=== PATIENT | male | born 1960 | race Caucasian/White ===

== ENCOUNTER 2017-01-11 14:18 | Emergency (ER) | payer OTHER ==
[~2017-01-11] VITALS: Ht 182.9 cm; Wt 92.0 kg
[~2017-01-11 14:18] MED LIST: BACT2OIN TOP; BETA.05%T TOP; CYCL1TAB29 PO; LISI-519 PO; NORC5TAB PO; THIA100T PO
[2017-01-11] MEDS ORDERED: SODIUM CHLOR 0.9% 1000 ML INJ 1,000 ML IV ONE (14:37)
[2017-01-11 14:40] VITALS: BP 179/107; PULSE 90; RESP 20; TEMP 99.3; O2SAT 97
[2017-01-11] MEDS ORDERED: SODIUM CHLORIDE 0.9% FLUSH 5 ML FLUSH IVF PRN (14:45)
[2017-01-11] MEDS ORDERED: LORazepam 2 MG/ML VIAL IVS ONE (14:45)
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
[2017-01-11 15:23] LABS: AUTOMATED NEUTROPHIL # 3.1 TH/MM3 (1.8-7.7); BASOPHIL % 0.6 % (0.0-2.0); EOSINOPHIL # 0.1 TH/MM3 (0-0.4); EOSINOPHIL % 1.5 % (0.0-4.0); HEMATOCRIT 38.8 % (39.0-51.0); HEMO FLAGS DIFF FINAL; LYMPH % 26.6 % (9.0-44.0); LYMPHOCYTE # 1.4 TH/MM3 (1.0-4.8); MEAN CELL VOLUME 91.9 FL (80.0-100.0); MEAN CORPUSCULAR HEMOGLOBIN 31.5 PG (27.0-34.0); MEAN CORPUSCULAR HGB CONC 34.2 % (32.0-36.0); MONO % 12.1 % (0.0-8.0); NEUT % 59.2 % (16.0-70.0); PLATELET COUNT 126 TH/MM3 (150-450); RED BLOOD COUNT 4.22 MIL/MM3 (4.50-5.90); RED CELL DISTRIBUTION WIDTH 17.3 % (11.6-17.2); WHITE BLOOD COUNT 5.2 TH/MM3 (4.0-11.0)
[2017-01-11 15:52] LABS: BICARBONATE 24.7 MEQ/L (21.0-32.0); POTASSIUM 3.7 MEQ/L (3.5-5.1)
[2017-01-11] MEDS ORDERED: LORA-392 PO (16:12)
[2017-01-11 17:54] LABS: BLOOD, URINE NEG (NEG); GLUCOSE,URINE NEG (NEG); KETONE, URINE NEG (NEG); NITRITE,URINE NEG (NEG); URINE COLOR YELLOW (YELLW/STRAW)
[2017-01-11 17:58] LABS: AMPHETAMINE, URINE NEG (NEG); BARBITURATES, URINE NEG (NEG); COCAINE, URINE NEG (NEG)
[2017-01-11 18:03] VITALS: BP 162/101; PULSE 92; RESP 20; O2SAT 98
== END 2017-01-11 18:47 | disposition home or self-care (01) ==
LOC: NEPE 14:18
DX: F10.230 Alcohol dependence with withdrawal, uncomplicated (principal); F10.10 Alcohol abuse, uncomplicated; R56.9 Unspecified convulsions; I10 Essential (primary) hypertension; F17.200 Nicotine dependence, unspecified, uncomplicated; Z87.39 Personal history of other diseases of the musculoskeletal system and connective tissue; Z87.09 Personal history of other diseases of the respiratory system; Z86.718 Personal history of other venous thrombosis and embolism; Z87.19 Personal history of other diseases of the digestive system; Z86.69 Personal history of other diseases of the nervous system and sense organs; Z87.2 Personal history of diseases of the skin and subcutaneous tissue
CPT/HCPCS: 80048; 80307; 80320; 81001; 85025; 96361; 96374; 99285; J2060; J7030

== ENCOUNTER 2017-03-24 09:31 | Inpatient (IN) | payer SELFPAY ==
[~2017-03-24] VITALS: Ht 182.9 cm; Wt 82.0 kg
[~2017-03-24 09:31] MED LIST changes: -BACT2OIN TOP; -BETA.05%T TOP; -CYCL1TAB29 PO; -LISI-519 PO; +LORA-392 PO; -NORC5TAB PO; -THIA100T PO
[2017-03-24 09:33] VITALS: BP 169/108; PULSE 124; RESP 20; TEMP 98.1; O2SAT 99
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
[2017-03-24] MEDS ORDERED: NO HOME MEDS (10:03)
[2017-03-24 10:19] LABS: AUTOMATED NEUTROPHIL # 5.3 TH/MM3 (1.8-7.7); BASOPHIL % 0.5 % (0.0-2.0); EOSINOPHIL % 0.6 % (0.0-4.0); HEMATOCRIT 42.4 % (39.0-51.0); HEMO FLAGS DIFF FINAL; LYMPHOCYTE # 1.4 TH/MM3 (1.0-4.8); MEAN CELL VOLUME 98.4 FL (80.0-100.0); MEAN CORPUSCULAR HEMOGLOBIN 32.2 PG (27.0-34.0); MEAN CORPUSCULAR HGB CONC 32.8 % (32.0-36.0); MONO % 10.1 % (0.0-8.0); NEUT % 69.8 % (16.0-70.0); PLATELET COUNT 154 TH/MM3 (150-450); WHITE BLOOD COUNT 7.6 TH/MM3 (4.0-11.0)
[2017-03-24 10:48] LABS: ALT (GPT) 51 U/L (12-78); ANION GAP 11 MEQ/L (5-15); AST (GOT) 50 U/L (15-37); BICARBONATE 23.1 MEQ/L (21.0-32.0); BLOOD UREA NITROGEN 6 MG/DL (7-18); CHLORIDE 104 MEQ/L (98-107); GLOMERULAR FILTRATION RATE 116 ML/MIN (>89); POTASSIUM 4.1 MEQ/L (3.5-5.1); SODIUM (NA) 138 MEQ/L (136-145)
[2017-03-24 10:50] LABS: ALKALINE PHOSPHATASE 78 U/L (45-117); TOTAL BILIRUBIN ADULT 0.5 MG/DL (0.2-1.0)
[2017-03-24] MEDS ORDERED: PIPERACIL-TAZO 4.5 GM PREMIX 100 ML IV ONE (11:15)
--- NOTE | 2017-03-24 11:17 | RADRPT ---
EXAM DATE/TIME: 03/24/2017 11:01 [facility] COMPARISON: No previous studies available for comparison. INDICATIONS : Open wound 5th toe, with pus drainage. MEDICAL HISTORY : None. SURGICAL HISTORY : None. ENCOUNTER: Initial ACUITY: 2 weeks PAIN SCORE: 10/10 LOCATION: Right foot. FINDINGS: Three view examination of the right foot demonstrates deformity of the fifth digit with fracture thro ugh the proximal phalanx. The remaining toe is dislocated laterally with overlap of fragments. There is subcutaneous emphysema and soft tissue swelling. CONCLUSION: 1. Fracture of the proximal phalanx of the fifth toe with dislocation of the distal toe laterally wit h overlap of fragments. 2. Subcutaneous emphysema and soft tissue swelling. Armando Licea MD on March 24, 2017 at 11:12 Board Certified Radiologist. This report was verified electronically.
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
[2017-03-24] MEDS ORDERED: RESP: ALBUTEROL 2.5 MG/IPRATROPIUM 0.5 MG NEB (PRN) NEB (11:45)
[2017-03-24] MEDS ORDERED: FLUMAZENIL 0.5 MG/5 ML VIAL IV PUSH PRN (11:45)
[2017-03-24] MEDS ORDERED: RESP: ALBUTEROL 2.5 MG/3 ML NEB (PRN) NEB (11:45)
[2017-03-24] MEDS ORDERED: SODIUM CHLORIDE 0.9% FLUSH 10 ML FLUSH IV FLUSH PRN ×2 (11:45)
[2017-03-24] MEDS ORDERED: HALOPERIDOL LACTATE 5 MG/ML AMP IM PRN (11:45)
[2017-03-24] MEDS ORDERED: DEXTROSE 50% IN WATER 50 ML VIAL(D50) IV PUSH PRN (11:45)
[2017-03-24] MEDS ORDERED: NALOXONE HCL 0.4 MG/ML AMP IV PRN (11:45)
[2017-03-24] MEDS ORDERED: MAGNESIUM HYDROXIDE SUSP 30 ML CUP PO PRN (11:45)
[2017-03-24] MEDS ORDERED: LORazepam 2 MG/ML VIAL IV PUSH PRN ×4 (11:45)
[2017-03-24] MEDS ORDERED: ONDANSETRON HCL 4 MG/2 ML VIAL IVP PRN (11:45)
[2017-03-24] MEDS ORDERED: DOCUSATE SODIUM 50 MG/SENNA 8.6 MG TAB PO PRN (11:45)
[2017-03-24] MEDS ORDERED: GLUCAGON 1 MG/ML VIAL OTHER PRN (11:45)
[2017-03-24] MEDS ORDERED: PROPOFOL 200 MG/20 ML AMP IV ONE (12:00)
[2017-03-24] MEDS ORDERED: ONDANSETRON HCL 4 MG/2 ML VIAL IV PUSH ONE (12:00)
[2017-03-24 12:08] VITALS: O2SAT 96
[2017-03-24] MEDS ORDERED: PIPERACIL-TAZO 4.5 GM PREMIX 100 ML IV SCH (12:15)
[2017-03-24] MEDS ORDERED: ACETAMINOPHEN 325 MG TAB PO PRN (12:15)
[2017-03-24 12:31] VITALS: BP 168/98; PULSE 88; RESP 18; O2SAT 98
[2017-03-24] MEDS ORDERED: chlordiazePOXIDE 25 MG CAP PO SCH (13:15)
[2017-03-24] MEDS: ACETAMINOPHEN/HYDROcodone 325 MG/10 MG TAB PO PRN ×2 (14:15→21:10)
--- NOTE | 2017-03-24 15:29 | MB ---
cc: AUDREY NDIAYE DPM DATE OF CONSULTATION: 03/24/2017 CHIEF COMPLAINT Right fifth digit ulcer infection. HISTORY OF PRESENT ILLNESS A 56-year-old homeless male who admitted wearing a pair of shoes that were too tight. He occasionally felt pain. He noticed some bleeding but the patient has significant neuropathy. He drinks 14-18 beers a day. Currently I am seeing the patient bedside. He is aware that there is odor, there is infection, and the need for surgical intervention. PAST MEDICAL HISTORY 1. Alcohol abuse. 2. Hypertension. 3. Left leg fracture. 4. Hand surgery. MEDICATIONS Reported medications: Lorazepam. ALLERGIES BEE STINGS FAMILY HISTORY Father of diabetes. Mother from cancer. SOCIAL HISTORY He is homeless in [place]. He lives in a tent at a dina's house. He smokes a pack a day. He drinks 12-18 beers a day unless he is out of money. Denies drug use. INPATIENT MEDICATIONS He is receiving Zosyn. Please see complete med list in chart. PHYSICAL EXAMINATION VITAL SIGNS: Temperature 98.1, pulse rate 88, respiratory rate 18, blood pressure 168/98. He is satting 98% on room air. GENERAL: This is an alert and oriented gentleman seen bedside. He is verbal and appropriate. He appears to be non-hallucinating. LOWER EXTREMITIES: The bilateral lower extremities are examined. On the right lower extremity there is noted to be a necrotic partially absent right fifth digit with swelling, erythema and edema to the dorsum of the foot. There is an odor. Pulses are palpable. Sensation is significantly decreased to light touch. There appears to be no ulceration of the left lower extremity. LABORATORY FINDINGS White blood cell count 7.6, hemoglobin/hematocrit 13/42, platelet count 154. ESR is 30. Chem-7: Sodium 138, potassium 4.1, chloride 104, CO2 23.1, BUN 6, creatinine 0.70, random glucose 137. IMAGING FINDINGS X-rays interpreted as soft tissue emphysema with fracture-dislocation involving the fifth digit. ASSESSMENT AND PLAN Right 5th digit fracture dislocation gangrene OR today for debridement of necrotic tissue and to explore possible gas within the tissue. The patient was educated on the need for surgery. Possible risks included prolonged healing and need for multiple debridements. Will of course take a deep culture and monitor the patient's bleeding status at the time of surgery. He should at least continue IV antibiotics for the next 3-5 days. Will advise pending surgery. JENNA Oh /2:48 PM /3:09 PM ELLEN
[2017-03-24 16:00] VITALS: BP 155/98; PULSE 76; RESP 16; TEMP 97.8; O2SAT 97
[2017-03-24] MEDS: INSULIN ASPART SUPPLEMENTAL SCALE SQ SCH ×2 (16:00→21:00)
[2017-03-24] MEDS ORDERED: MIDAZOLAM HCL 2 MG/2 ML VIAL ONE ×2 (17:08→18:45)
[2017-03-24] MEDS ORDERED: DEXAMETHASONE SOD PHOS 4 MG/ML VIAL ONE (17:08)
[2017-03-24] MEDS ORDERED: FAMOTIDINE 20 MG/2 ML VIAL ONE (17:08)
[2017-03-24] MEDS ORDERED: NEOMYCIN/POLYMYXIN 1 ML G.U. IRRIGANT TOPICAL ONE (17:35)
[2017-03-24] MEDS ORDERED: BUPIVACAINE HCL PF 0.5% 30 ML VIAL INFIL ONE (17:36)
[2017-03-24] MEDS ORDERED: SUGAMMADEX SODIUM 200 MG/2 ML VIAL IV PUSH ONE ×2 (18:02)
--- NOTE | 2017-03-24 18:27 | HHI.PR ---
Immediate Post Op Note Procedure Date: March 24, 2017 Pre Op Diagnosis: Right 5th digit gangrene OM 5th met Post Op Diagnosis: same Surgeon: Emmett Mayberry Shactor Helper(s): Scrub Procedure: Right the digit amputation, partial 5th metatarsal resection Findings: severe putrid odor of digit, 5th metatarsal head with clinical OM Complications: none Specimen(s) removed: rt 5th digit and bone for path and micro. Estimated blood loss: 30mL Anesthesia: General, Local Drains: Other Fluids: see anethesia report IVF Tourniquet time (min at mmHg) esmark ankle 10min Patient to: Other Patient Condition: Fair Implant/Devices: SEE IMPLANT LOG (if applicable) Date/Time of Procedure: SEE SURGICAL CARE RECORD Emmett Mayberry DPM March 24, 2017 18:26
[2017-03-24] MEDS ORDERED: *RESP: ALBUTEROL 2.5 MG/3 ML NEB (PRN) PERIprocedural Use ONLY NEB ONE (18:31)
[2017-03-24] MEDS ORDERED: fentaNYL CITRATE 250 MCG/5 ML AMP ONE (18:45)
[2017-03-24] MEDS ORDERED: *LABETALOL HCL 100 MG/20 ML VIAL PERIprocedural Use ONLY ONE ×2 (19:04→19:13)
[2017-03-24] MEDS ORDERED: *morphine SULFATE 8 MG/ML PERIprocedure ONLY ONE ×2 (19:06→19:20)
[2017-03-24] MEDS: SODIUM CHLOR 0.45% 1000 ML INJ 1,000 ML IV SCH (19:20)
[2017-03-24] MEDS: PIPERACIL-TAZO 4.5 GM PREMIX 100 ML IV SCH (19:40)
[2017-03-24 20:00] VITALS: BP 149/93; PULSE 73; RESP 20; TEMP 96.3; O2SAT 95
[2017-03-24 20:30] VITALS: O2SAT 93
[2017-03-24] MEDS ORDERED: SODIUM CHLORIDE 0.9% FLUSH 10 ML FLUSH IV FLUSH SCH (21:00)
[2017-03-24] MEDS: cloNIDine HCL 0.1 MG TAB PO PRN (21:09)
[2017-03-24] MEDS: LORazepam 2 MG TAB PO PRN (21:09)
[2017-03-24] MEDS: SODIUM CHLORIDE 0.9% FLUSH 10 ML FLUSH IV FLUSH SCH (21:10)
[2017-03-25] VITALS (7 sets, daily range): BP systolic 125–162; BP diastolic 75–100; PULSE 61–75; RESP 14–20; TEMP 96.1–97.4; O2SAT 95–99
[2017-03-25] MEDS: PIPERACIL-TAZO 4.5 GM PREMIX 100 ML IV SCH ×3 (00:16→16:11)
[2017-03-25] MEDS: SODIUM CHLOR 0.45% 1000 ML INJ 1,000 ML IV SCH ×2 (00:16→16:12)
[2017-03-25] MEDS: ACETAMINOPHEN/HYDROcodone 325 MG/10 MG TAB PO PRN ×2 (04:26→23:19)
[2017-03-25] MEDS: LORazepam 2 MG TAB PO PRN ×5 (04:26→18:10)
[2017-03-25] MEDS: INSULIN ASPART SUPPLEMENTAL SCALE SQ SCH ×4 (06:33→21:00)
[2017-03-25 06:57] LABS: AUTOMATED NEUTROPHIL # 5.7 TH/MM3 (1.8-7.7); BASOPHIL % 0.4 % (0.0-2.0); EOSINOPHIL % 0.2 % (0.0-4.0); HEMATOCRIT 39.3 % (39.0-51.0); HEMO FLAGS DIFF FINAL; LYMPHOCYTE # 0.8 TH/MM3 (1.0-4.8); MEAN CELL VOLUME 99.8 FL (80.0-100.0); MEAN CORPUSCULAR HEMOGLOBIN 32.1 PG (27.0-34.0); MEAN CORPUSCULAR HGB CONC 32.2 % (32.0-36.0); MONO % 11.3 % (0.0-8.0); NEUT % 77.1 % (16.0-70.0); PLATELET COUNT 128 TH/MM3 (150-450); RED BLOOD COUNT 3.94 MIL/MM3 (4.50-5.90); RED CELL DISTRIBUTION WIDTH 16.2 % (11.6-17.2); WHITE BLOOD COUNT 7.4 TH/MM3 (4.0-11.0)
[2017-03-25 07:27] LABS: BICARBONATE 27.1 MEQ/L (21.0-32.0); POTASSIUM 4.1 MEQ/L (3.5-5.1)
[2017-03-25] MEDS: MULTIVITAMINS/MINERALS THERAPEUTIC TAB PO SCH (08:05)
[2017-03-25] MEDS: SODIUM CHLORIDE 0.9% FLUSH 10 ML FLUSH IV FLUSH SCH ×2 (08:05→21:00)
[2017-03-25] MEDS: THIAMINE HCL 100 MG TAB PO SCH (08:05)
[2017-03-25] MEDS: FOLIC ACID 1 MG TAB PO SCH (08:05)
[2017-03-25] MEDS ORDERED: PNEUMOCOCCAL POLYVALENT INJ 25 MCG/0.5 ML SYR IM ONE (10:00)
[2017-03-25] MEDS ORDERED: INFLUENZA VIRUS VACCINE (QUADRIVALENT) 0.5 ML SYR IM ONE (10:00)
[2017-03-25] MEDS: ACETAMINOPHEN/HYDROcodone 325 MG/5 MG TAB PO PRN ×2 (11:29→18:10)
[2017-03-25] MEDS: BACITRACIN TOP OINT 15 GM TUBE TOPICAL SCH ×3 (11:29→21:01)
[2017-03-25] MEDS: chlordiazePOXIDE 25 MG CAP PO PRN (11:59)
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
--- NOTE | 2017-03-25 22:59 | MP ---
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 PROCEDURE Right fifth digit amputation with partial resection of fifth metatarsal. FINDINGS Severe putrid odor of digit with ischemia at the level of the fifth metatarsal, was soft, spongy, clinical signs OM. COMPLICATIONS None SPECIMEN Right fifth digit and bone for pathological analysis and micro ESTIMATED BLOOD LOSS Less than 30 mL ANESTHESIA General with local DRAINS 1/" Iodoform packing FLUIDS Please see anesthesia report. TOURNIQUET Esmarch about the ankle for 10 minutes INJECTABLES 10 mL of 0.25% Marcaine plain. CONDITION OF PATIENT Fair JUSTIFICATION FOR PROCEDURE A 56-year-old male who is admitted to the hospital for a putrid odor. X-ray showed dislocation of the digit. Clinically, the patient has a gangrene event. The patient is educated on the need for surgery, possible multiple debridements and IV antibiotics indicated. PROCEDURE IN DETAIL Under mild sedation, the patient was brought into the operating room, placed on the operative table in the supine position. Following the induction of general anesthesia, local anesthesia was obtained utilizing an ankle block. The patient's right foot was then scrubbed, prepped and draped in usual aseptic fashion. The foot was elevated, exsanguinated and the Esmarch remained around the ankle serving as a tourniquet. There is noted to be a floppy putrid digit which was sharply disarticulated at the level of the fifth MPJ. Next, a linear incision took place over the dorsal aspect of the fifth metatarsal. Sharp and blunt dissection was carried down to the periosteal surface of the fifth metatarsal utilizing power instrumentation. It was then resected. A bone biopsy was taken at the margin of the proximal cut of the fifth metatarsal and this was sent for microbial analysis and pathological analysis. The wound was then flushed with copious amounts of normal saline. The tourniquet was then relieved. There was noted to be pretty good bleeding at the surgery site. Bovie and ligation of vessels took place. Two retention sutures were then placed. A bulky bandage placed around the patient's right foot. The patient was then transferred from OR to PACU with all vital signs stable. The patient may need repeat debridement depending on how the foot looks within the next [id number] days. He should at least continue IV antibiotics. JENNA Oh /6:27 PM /10:53 PM
[2017-03-26] VITALS: BP 175/110; PULSE 71; RESP 20; TEMP 97.5; O2SAT 95
[2017-03-26] MEDS: PIPERACIL-TAZO 4.5 GM PREMIX 100 ML IV SCH ×3 (00:27→17:42)
[2017-03-26] MEDS: chlordiazePOXIDE 25 MG CAP PO PRN ×2 (00:27→11:20)
[2017-03-26] MEDS: cloNIDine HCL 0.1 MG TAB PO PRN ×3 (00:27→17:51)
[2017-03-26 04:00] VITALS: BP 165/98; PULSE 58; RESP 20; TEMP 96.6; O2SAT 97
[2017-03-26] MEDS: SODIUM CHLOR 0.45% 1000 ML INJ 1,000 ML IV SCH ×2 (05:00→17:47)
[2017-03-26] MEDS: BACITRACIN TOP OINT 15 GM TUBE TOPICAL SCH ×3 (06:03→20:04)
[2017-03-26] MEDS: INSULIN ASPART SUPPLEMENTAL SCALE SQ SCH ×4 (06:16→20:03)
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
[2017-03-26 08:00] VITALS: BP 178/112; PULSE 91; RESP 17; TEMP 97.2; O2SAT 98
[2017-03-26] MEDS: FOLIC ACID 1 MG TAB PO SCH (08:01)
[2017-03-26] MEDS: MULTIVITAMINS/MINERALS THERAPEUTIC TAB PO SCH (08:01)
[2017-03-26] MEDS: THIAMINE HCL 100 MG TAB PO SCH (08:01)
[2017-03-26] MEDS: LORazepam 2 MG TAB PO PRN ×3 (08:01→17:47)
[2017-03-26] MEDS: ACETAMINOPHEN/HYDROcodone 325 MG/5 MG TAB PO PRN (08:01)
[2017-03-26] MEDS: SODIUM CHLORIDE 0.9% FLUSH 10 ML FLUSH IV FLUSH SCH ×2 (08:02→19:30)
[2017-03-26] MEDS ORDERED: ACETAMINOPHEN/HYDROcodone 325 MG/5 MG TAB PO PRN (10:15)
[2017-03-26 11:19] LABS: HEMOGLOBIN A1a 1.3 %; HEMOGLOBIN A1b 1.7 %; HEMOGLOBIN Ao 84.6 %; HEMOGLOBIN LA1C 2.4 %; HEMOGLOBIN P3 3.6 %
[2017-03-26 12:00] VITALS: BP 153/83; PULSE 59; RESP 14; TEMP 97.8; O2SAT 96
[2017-03-26] MEDS ORDERED: MORPHINE SULFATE 4 MG/ML INJ IV PUSH PRN (12:30)
--- NOTE | 2017-03-26 13:27 | PD.POD ---
Subjective Pain score: 3 Remarks pain is getting better Past Med/Surg/Social History Social History Smoking Status: Current Every Day Smoker Objective Vital Signs Vital Signs Date Time Temp Pulse Resp B/P Pulse Ox O2 Delivery O2 Flow Rate FiO2 03/26/17 04:00 96.6 58 20 165/98 97 03/26/17 00:26 18 03/26/17 00:00 97.5 71 20 175/110 95 03/25/17 23:18 18 03/25/17 20:00 96.1 67 20 162/100 98 03/25/17 16:00 97.3 75 18 125/83 95 Coded Allergies: Bee Sting (Verified Allergy, Intermediate, SWELLS UP, 01/11/17) Medications and IVs Administered Medications Medications (Trade) Dose Ordered Sig/Josemanuel Route PRN Reason Start Time Stop Time Status Last Admin Dose Admin Sodium Chloride (1/2 NS 1000 ml Inj) 1,000 ml @ 75 mls/hr [id number] IV 03/24/17 13:00 03/25/17 16:12 Sodium Chloride (NS Flush) 2 ml BID IV FLUSH 03/24/17 21:00 03/26/17 08:02 Ondansetron HCl (Zofran Inj) 4 mg Q6H PRN IVP NAUSEA OR VOMITING 03/24/17 11:45 03/25/17 20:57 Folic Acid (Folate) 1 mg DAILY PO 03/25/17 09:00 03/30/17 08:59 03/25/17 08:05 Thiamine HCl (Vitamin B1) 100 mg DAILY PO 03/25/17 09:00 03/26/17 08:01 Multivitamins/ Minerals Therapeutic (Theragran M Tab) 1 tab DAILY PO 03/25/17 09:00 03/30/17 08:59 03/26/17 08:01 Clonidine (Catapres) 0.1 mg Q6H PRN PO SEE LABEL COMMENTS 03/24/17 11:45 03/26/17 08:10 Lorazepam (Ativan) 2 mg Q2H PRN PO CIWA 11-14 03/24/17 11:45 03/26/17 08:01 Acetaminophen 650 mg 650 mg Q4H PRN PO TEMP>101F, PAIN 1-2, HEADACHE 03/24/17 12:15 03/25/17 20:56 Piperacillin Sod/ Tazobactam Sod (Zosyn 4.5 Gm Premix) 100 ml @ 200 mls/hr Q8H IV 03/24/17 17:00 03/26/17 11:15 Bacitracin (Baciguent Oint) 1 applic Q8HR TOPICAL 03/25/17 09:02 03/26/17 06:03 Chlordiazepoxide (Librium) 25 mg Taper BID PRN PO SEVERE ANXIETY OR AGITATION 03/25/17 11:30 03/29/17 11:29 03/26/17 11:20 Other Results Laboratory Tests Test 03/25/17 04:10 White Blood Count 7.4 TH/MM3 Red Blood Count 3.94 MIL/MM3 Hemoglobin 12.7 GM/DL Hematocrit 39.3 % Mean Corpuscular Volume 99.8 FL Mean Corpuscular Hemoglobin 32.1 PG Mean Corpuscular Hemoglobin 32.2 % Concent Red Cell Distribution Width 16.2 % Platelet Count 128 TH/MM3 Mean Platelet Volume 10.0 FL Neutrophils (%) (Auto) 77.1 % Lymphocytes (%) (Auto) 11.0 % Monocytes (%) (Auto) 11.3 % Eosinophils (%) (Auto) 0.2 % Basophils (%) (Auto) 0.4 % Neutrophils # (Auto) 5.7 TH/MM3 Lymphocytes # (Auto) 0.8 TH/MM3 Monocytes # (Auto) 0.8 TH/MM3 Eosinophils # (Auto) 0.0 TH/MM3 Basophils # (Auto) 0.0 TH/MM3 CBC Comment DIFF FINAL Differential Comment Laboratory Tests Test 03/25/17 04:10 Sodium Level 139 MEQ/L Potassium Level 4.1 MEQ/L Chloride Level 105 MEQ/L Carbon Dioxide Level 27.1 MEQ/L Anion Gap 7 MEQ/L Blood Urea Nitrogen 7 MG/DL Creatinine 0.75 MG/DL Estimat Glomerular Filtration 107 ML/MIN Rate Random Glucose 137 MG/DL Calcium Level 8.4 MG/DL Vitamin B12 Level 286 PG/ML Folate 13.3 NG/ML Hemoglobin A1c 5.8 % Microbiology Date/Time Procedure Status Source Growth 03/24/17 10:10 Gram Stain - Final Resulted Wound Foot 03/24/17 10:10 Wound Culture - Preliminary Resulted Group D Enterococcus 03/24/17 20:03 Gram Stain - Final Complete Wound Toe 03/24/17 20:03 Wound Culture - Final Complete Proteus Vulgaris 03/24/17 20:03 Acid Fast Stain Worksheet Wound Toe Pending 03/24/17 20:03 Mycobacterial Culture Worksheet Wound Toe Pending 03/24/17 20:03 Fungal Smear - Final Resulted Wound Toe NO FUNGAL ELEMENTS SEEN. 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 SP 5th digit Amp and partial 5th metatarsal resection. Bone path pending. May need further debridement with delayed primary closure of wound. FU 1-2 days pending path, wound care per nursing. Dr Posada to assume care starting tomorrow. Emmett Bates DPM March 26, 2017 13:27
[2017-03-26 16:00] VITALS: BP 172/106; PULSE 58; RESP 16; TEMP 99.3; O2SAT 97
[2017-03-26 20:00] VITALS: BP 165/89; PULSE 56; RESP 18; TEMP 97.8; O2SAT 98
[2017-03-27] VITALS: BP 157/84; PULSE 60; RESP 20; TEMP 98.4; O2SAT 97
[2017-03-27] MEDS: PIPERACIL-TAZO 4.5 GM PREMIX 100 ML IV SCH ×3 (00:58→17:19)
[2017-03-27 04:40] LABS: AUTOMATED NEUTROPHIL # 3.8 TH/MM3 (1.8-7.7); BASOPHIL # 0.1 TH/MM3 (0-0.2); BASOPHIL % 1.4 % (0.0-2.0); EOSINOPHIL # 0.1 TH/MM3 (0-0.4); HEMATOCRIT 41.1 % (39.0-51.0); HEMO FLAGS DIFF FINAL; LYMPH % 26.6 % (9.0-44.0); LYMPHOCYTE # 1.7 TH/MM3 (1.0-4.8); MEAN CELL VOLUME 98.3 FL (80.0-100.0); MEAN CORPUSCULAR HEMOGLOBIN 32.3 PG (27.0-34.0); MEAN CORPUSCULAR HGB CONC 32.9 % (32.0-36.0); MONO % 11.2 % (0.0-8.0); NEUT % 58.8 % (16.0-70.0); PLATELET COUNT 156 TH/MM3 (150-450); RED BLOOD COUNT 4.18 MIL/MM3 (4.50-5.90); RED CELL DISTRIBUTION WIDTH 16.5 % (11.6-17.2); WHITE BLOOD COUNT 6.4 TH/MM3 (4.0-11.0)
[2017-03-27 05:02] LABS: BICARBONATE 25.8 MEQ/L (21.0-32.0); POTASSIUM 3.4 MEQ/L (3.5-5.1)
[2017-03-27] MEDS: BACITRACIN TOP OINT 15 GM TUBE TOPICAL SCH ×3 (05:05→22:00)
[2017-03-27] MEDS: INSULIN ASPART SUPPLEMENTAL SCALE SQ SCH ×4 (06:02→21:00)
[2017-03-27] MEDS ORDERED: POTASSIUM CHLORIDE 25 MEQ EFFERVESCENT TAB PO ONE (06:45)
[2017-03-27 08:00] VITALS: BP 159/99; PULSE 61; RESP 14; TEMP 97.3; O2SAT 97
[2017-03-27] MEDS: LORazepam 2 MG TAB PO PRN (08:45)
[2017-03-27] MEDS: THIAMINE HCL 100 MG TAB PO SCH (08:45)
[2017-03-27] MEDS: SODIUM CHLORIDE 0.9% FLUSH 10 ML FLUSH IV FLUSH SCH ×2 (08:45→21:00)
[2017-03-27] MEDS: FOLIC ACID 1 MG TAB PO SCH (08:45)
[2017-03-27] MEDS: MULTIVITAMINS/MINERALS THERAPEUTIC TAB PO SCH (08:45)
[2017-03-27] MEDS: SODIUM CHLOR 0.45% 1000 ML INJ 1,000 ML IV SCH (08:46)
[2017-03-27] MEDS: ACETAMINOPHEN/HYDROcodone 325 MG/10 MG TAB PO PRN ×2 (09:08→17:19)
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
[2017-03-27 12:00] VITALS: BP 162/102; PULSE 61; RESP 17; TEMP 97.6; O2SAT 97
[2017-03-27 16:00] VITALS: BP 131/85; PULSE 73; RESP 19; TEMP 96.7; O2SAT 97
--- NOTE | 2017-03-27 17:44 | PD.POD ---
Subjective Podiatric Problems s/p right partial 5th ray amputation with on 03/24/17. Patient complains only of mild/mod pain at this time. He denies any n/v/f/h/c/sob. Pain score: 3 Past Med/Surg/Social History Social History Smoking Status: Current Every Day Smoker Objective Vital Signs Vital Signs Date Time Temp Pulse Resp B/P Pulse Ox O2 Delivery O2 Flow Rate FiO2 03/27/17 16:00 96.7 73 19 131/85 97 03/27/17 12:00 97.6 61 17 162/102 97 03/27/17 08:00 97.3 61 14 159/99 97 03/27/17 00:00 98.4 60 20 157/84 97 03/26/17 20:00 97.8 56 18 165/89 98 03/26/17 17:58 21 Coded Allergies: Bee Sting (Verified Allergy, Intermediate, SWELLS UP, 01/11/17) Physical Exam Remarks Exam is unchanged from pre operative levels with exception of the surgical site: Right foot partial 5th ray amputation loose sutures intact, serous drainage, central wound 0.5cm x 0.5cm x 0.5cm with fibrotic base. No erythema. No malodor. Assessment & Plan A/P 1) right foot s/p partial 5th ray amputation -bone pathology is pending -daily dressing changes -WBAT in surgical shoe -Wound appears to be healing well, I do not foresee the need for repeat surgery in the near future. Will be able to determine discharge needs pending results of the bone pathology obtained by . Saira Posada DPM March 27, 2017 17:44
[2017-03-27 20:00] VITALS: BP 154/80; PULSE 64; RESP 20; TEMP 98; O2SAT 99
[2017-03-28] VITALS: BP 148/76; PULSE 69; RESP 18; TEMP 98.2; O2SAT 97
[2017-03-28] MEDS: PIPERACIL-TAZO 4.5 GM PREMIX 100 ML IV SCH ×3 (01:35→16:51)
[2017-03-28] MEDS: ACETAMINOPHEN/HYDROcodone 325 MG/10 MG TAB PO PRN ×5 (04:36→22:03)
[2017-03-28 05:36] LABS: AUTOMATED NEUTROPHIL # 3.4 TH/MM3 (1.8-7.7); BASOPHIL % 0.8 % (0.0-2.0); EOSINOPHIL # 0.1 TH/MM3 (0-0.4); EOSINOPHIL % 2.1 % (0.0-4.0); HEMATOCRIT 39.7 % (39.0-51.0); HEMO FLAGS DIFF FINAL; LYMPH % 28.1 % (9.0-44.0); LYMPHOCYTE # 1.7 TH/MM3 (1.0-4.8); MEAN CELL VOLUME 98.4 FL (80.0-100.0); MEAN CORPUSCULAR HEMOGLOBIN 32.2 PG (27.0-34.0); MEAN CORPUSCULAR HGB CONC 32.7 % (32.0-36.0); MONO % 12.7 % (0.0-8.0); NEUT % 56.3 % (16.0-70.0); PLATELET COUNT 169 TH/MM3 (150-450); RED BLOOD COUNT 4.04 MIL/MM3 (4.50-5.90); RED CELL DISTRIBUTION WIDTH 15.8 % (11.6-17.2)
[2017-03-28] MEDS: BACITRACIN TOP OINT 15 GM TUBE TOPICAL SCH ×3 (06:00→22:00)
[2017-03-28 06:02] LABS: BICARBONATE 27.1 MEQ/L (21.0-32.0); POTASSIUM 3.4 MEQ/L (3.5-5.1)
[2017-03-28] MEDS: INSULIN ASPART SUPPLEMENTAL SCALE SQ SCH ×4 (06:20→20:29)
[2017-03-28] MEDS ORDERED: POTASSIUM CHLORIDE 10 MEQ CONTROLLED RELEASE TAB PO ONE (07:30)
[2017-03-28 08:00] VITALS: BP 174/96; PULSE 60; RESP 19; TEMP 97; O2SAT 98
[2017-03-28] MEDS: MULTIVITAMINS/MINERALS THERAPEUTIC TAB PO SCH (08:24)
[2017-03-28] MEDS: LORazepam 1 MG TAB PO PRN (08:24)
[2017-03-28] MEDS: SODIUM CHLORIDE 0.9% FLUSH 10 ML FLUSH IV FLUSH SCH ×2 (08:25→21:00)
[2017-03-28] MEDS: THIAMINE HCL 100 MG TAB PO SCH (08:25)
[2017-03-28] MEDS: FOLIC ACID 1 MG TAB PO SCH (08:25)
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
[2017-03-28] MEDS: cloNIDine HCL 0.1 MG TAB PO PRN ×2 (11:29→23:16)
[2017-03-28 12:00] VITALS: BP 176/100; PULSE 61; RESP 19; TEMP 97.4; O2SAT 97
[2017-03-28 16:00] VITALS: BP 152/96; PULSE 64; RESP 18; TEMP 97; O2SAT 97
[2017-03-28 20:00] VITALS: BP 144/91; PULSE 63; RESP 18; TEMP 97; O2SAT 97
[2017-03-29] VITALS (8 sets, daily range): BP systolic 141–192; BP diastolic 80–109; PULSE 52–62; RESP 14–18; TEMP 95.9–97.3; O2SAT 95–98
[2017-03-29] MEDS: PIPERACIL-TAZO 4.5 GM PREMIX 100 ML IV SCH ×2 (00:24→07:49)
[2017-03-29] MEDS: LORazepam 1 MG TAB PO PRN ×2 (02:02→15:04)
[2017-03-29] MEDS: BACITRACIN TOP OINT 15 GM TUBE TOPICAL SCH ×3 (05:37→20:27)
[2017-03-29 06:18] LABS: BICARBONATE 27.6 MEQ/L (21.0-32.0)
[2017-03-29] MEDS: INSULIN ASPART SUPPLEMENTAL SCALE SQ SCH ×4 (07:00→20:27)
[2017-03-29] MEDS: THIAMINE HCL 100 MG TAB PO SCH (07:49)
[2017-03-29] MEDS: cloNIDine HCL 0.1 MG TAB PO PRN ×2 (07:49→16:35)
[2017-03-29] MEDS: MULTIVITAMINS/MINERALS THERAPEUTIC TAB PO SCH (07:49)
[2017-03-29] MEDS: FOLIC ACID 1 MG TAB PO SCH (07:49)
[2017-03-29] MEDS: ACETAMINOPHEN/HYDROcodone 325 MG/10 MG TAB PO PRN ×4 (07:50→20:25)
[2017-03-29] MEDS: SODIUM CHLORIDE 0.9% FLUSH 10 ML FLUSH IV FLUSH SCH ×2 (09:00→20:21)
[2017-03-29] MEDS ORDERED: DOCUSATE SODIUM 50 MG/SENNA 8.6 MG TAB PO ONE (11:30)
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
--- NOTE | 2017-03-29 15:38 | PD.ID.CON ---
History of Present Illness Service ID Consult Requested By Dr Dunn Reason for Consult R foot osteo Primary Care Physician No Primary Care Physician Diagnoses: History of Present Illness Pt seen and interviewed around 1500 today in the room 1707 He was not very cooperative with history and seems irritable chart reviewed 56 yo male suhail + developped an ulceration on the lateral aspect of his R foot which progressed to black discoloration He was found to have gas in soft tissue and fracture -dislocation of 5 th digit He underwent 5 th ray amputation on 03/24 and post op diagnosis was 5 th digit gangrene with 5th MT underlying osteo His path confirmed acute osteo He is on zosyn and his wound clx are positive for Proteus and enterococcus Review of Systems ROS Limitations: Uncooperative Past Family Social History Allergies: Coded Allergies: Bee Sting (Verified Allergy, Intermediate, SWELLS UP, 01/11/17) Past Medical History HTN ETOHism Past Surgical History Leg fracture Hand surgery Active Ordered Medications Medications where reviewed in EMR Antibiotics Include: zosyn Family History Non-Contributory. Social History + Tobacco. 1ppd + ETOH. Daily . " A lot" No Illicit Drugs. Homeless Physical Exam Vital Signs Vital Signs Date Time Temp Pulse Resp B/P Pulse Ox O2 Delivery O2 Flow Rate FiO2 03/29/17 12:00 95.9 52 16 175/99 98 03/29/17 08:00 97.0 62 14 164/101 97 03/29/17 01:06 155/99 03/29/17 00:35 158/100 03/29/17 00:00 96.6 56 18 181/107 98 03/28/17 20:00 97.0 63 18 144/91 97 03/28/17 16:00 97.0 64 18 152/96 97 Physical Exam CONSTITUTIONAL/GENERAL: This is an adequately nourished patient, in no apparent distress. Poor hygiene TUBES/LINES/DRAINS: SKIN: No jaundice, rashes, or lesions. Skin temperature appropriate. Not diaphoretic. HEAD: Atraumatic. Normocephalic. EYES: Pupils equal and round and reactive. Extraocular motions intact. No scleral icterus. No injection or drainage. Fundi not examined. ENT: Hearing grossly normal. Nose without bleeding or purulent drainage. Oral mucosae without visible erythema, exudates, masses, or lesions. NECK: Trachea midline. Supple, nontender. CARDIOVASCULAR: Regular rate and rhythm without murmurs, gallops, or rubs. No JVD. Peripheral pulses symmetric. RESPIRATORY/CHEST: Symmetric, unlabored respirations. Clear to auscultation. Breath sounds equal bilaterally. No wheezes, rales, or rhonchi. GASTROINTESTINAL: Abdomen soft, non-tender, nondistended. No hepato-splenomegaly , or palpable masses. No guarding. Bowel sounds present. GENITOURINARY: Without palpable bladder distension. MUSCULOSKELETAL: Extremities without clubbing, cyanosis, or edema. TP pulses palpable b/l R foot w/o ulcers or other stigmata of poor circulation R foot sp 5h ray amputaion; some edema present stitiches in place minimal serous d/c + small odor present No necrotic tissue no erythema No mottling or clubbing. LYMPHATICS: No palpable cervical or supraclavicular adenopathy. NEUROLOGICAL: Awake and alert. Motor and sensory grossly within normal limits. Follows commands. Normal speech. Moves all extremities. PSYCHIATRIC:+ anxiety; irritability + hands shaking no apparent hallucinations or other psychotic thought process. Laboratory GRAM STAIN Final 03/24/17-1549 NO WBC'S SEEN RARE GRAM POSITIVE COCCI IN PAIRS WOUND CULTURE Final 03/28/17-0907 HEAVY GROWTH ENTEROCOCCUS AVIUM HEAVY GROWTH >=3 MIXED ENTERIC GRAM NEGATIVE RODS WITH NO PREDOMINANT ORGANISM. NO FURTHER WORK-UP HEAVY GROWTH NORMAL SKIN RICKY UNABLE TO RULE OUT ANAEROBES DUE TO SPREADING PROTEUS SP. Laboratory Tests Test 03/29/17 04:27 Sodium Level 142 Potassium Level 4.0 Chloride Level 108 Carbon Dioxide Level 27.6 Anion Gap 6 Blood Urea Nitrogen 17 Creatinine 0.98 Estimat Glomerular Filtration 79 Rate Random Glucose 94 Calcium Level 9.3 Date/Time Procedure Status Source Growth 03/24/17 20:03 Gram Stain - Final Complete Wound Toe 03/24/17 20:03 Wound Culture - Final Complete Proteus Vulgaris 03/24/17 20:03 Fungal Smear - Final Resulted Wound Toe NO FUNGAL ELEMENTS SEEN. 03/24/17 20:03 Fungal Culture Resulted Wound Toe Pending 03/24/17 20:03 Acid Fast Stain - Final Resulted Wound Toe NO ACID FAST BACILLI SEEN 03/24/17 20:03 Mycobacterial Culture Resulted Wound Toe Pending Result Diagram: 03/28/17 0428 03/29/17 0427 Imaging Last Impressions Foot X-Ray 03/24/17 0000 Signed Impressions: Service Date/Time: Friday, March 24, 2017 11:01 - CONCLUSION: 1. Fracture of the proximal phalanx of the fifth toe with dislocation of the distal toe laterally with overlap of fragments. 2. Subcutaneous emphysema and soft tissue swelling. Armanod Licea MD Assessment and Plan Assessment and Plan 5th toe gangrene, 5 th ray osteo, mixed aerobic/anaerobic ricky; s/p 5th ray amputation HEAVY GROWTH ENTEROCOCCUS AVIUM HEAVY GROWTH >=3 MIXED ENTERIC GRAM NEGATIVE RODS WITH NO PREDOMINANT ORGANISM. UNABLE TO RULE OUT ANAEROBES DUE TO SPREADING PROTEUS SP. No e/o diabetes; nl Hb A1 C Change abx to Unasyn call placed to pathology - will call back in am re extention of infx to the margins If all infected and necrotic bone and soft tissue has been resected (eg, amputation), then a brief course (ie, about a week) of antibiotics is likely adequate. Four to six weeks is an appropriate course if there is residual infected bone following debridement of necrotic bone would need to cont IV abx for now, since probnably some necrotic tissue is still present (+ anaerobic smell, though wound looks clean) Angela Chen MD March 29, 2017 15:38
[2017-03-29] MEDS: AMPICILLIN-SULBACTAM INJ 3 GM in SODIUM CHLORIDE 0.9% INJ 100 ML IV SCH ×2 (16:31→20:21)
[2017-03-29] MEDS: DOCUSATE SODIUM 50 MG/SENNA 8.6 MG TAB PO SCH (20:22)
[2017-03-30] MEDS: AMPICILLIN-SULBACTAM INJ 3 GM in SODIUM CHLORIDE 0.9% INJ 100 ML IV SCH ×4 (03:55→20:06)
[2017-03-30] MEDS: ACETAMINOPHEN/HYDROcodone 325 MG/10 MG TAB PO PRN ×5 (03:59→20:06)
[2017-03-30 04:00] VITALS: BP 168/98; PULSE 58; RESP 18; TEMP 96.8; O2SAT 95
[2017-03-30] MEDS: BACITRACIN TOP OINT 15 GM TUBE TOPICAL SCH ×3 (04:20→20:07)
[2017-03-30] MEDS: INSULIN ASPART SUPPLEMENTAL SCALE SQ SCH ×4 (05:22→20:13)
[2017-03-30 08:00] VITALS: BP 174/101; PULSE 54; RESP 16; TEMP 96.5; O2SAT 97
[2017-03-30] MEDS: SODIUM CHLORIDE 0.9% FLUSH 10 ML FLUSH IV FLUSH SCH ×2 (08:11→20:07)
[2017-03-30] MEDS: DOCUSATE SODIUM 50 MG/SENNA 8.6 MG TAB PO SCH ×2 (08:11→20:13)
[2017-03-30] MEDS: THIAMINE HCL 100 MG TAB PO SCH (08:18)
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
[2017-03-30] MEDS ORDERED: HEPARIN SODIUM - SQ 10,000 UNITS/ML VIAL SQ SCH (09:30)
[2017-03-30] MEDS: HEPARIN SODIUM - SQ 10,000 UNITS/ML VIAL SQ SCH ×2 (11:14→20:06)
[2017-03-30 12:00] VITALS: BP 145/89; PULSE 60; RESP 18; TEMP 97.8; O2SAT 97
--- NOTE | 2017-03-30 15:34 | HHI.IDPN ---
Subjective Subjective Remarks case dw Dr Jimenez + osteomyelitis in bone fragments submitted Pt is doing OK tolerating abx no co Antibiotics unasyn Allergies: Coded Allergies: Bee Sting (Verified Allergy, Intermediate, SWELLS UP, 01/11/17) Objective . Vital Signs Date Time Temp Pulse Resp B/P Pulse Ox O2 Delivery O2 Flow Rate FiO2 03/30/17 12:00 97.8 60 18 145/89 97 03/30/17 08:00 96.5 54 16 174/101 97 03/30/17 04:00 96.8 58 18 168/98 95 03/29/17 23:53 97.3 54 18 153/89 95 03/29/17 20:00 97.2 58 18 141/80 98 03/29/17 16:00 96.3 56 14 192/109 98 03/29/17 03/29/17 03/30/17 15:00 23:00 07:00 Intake Total 1200 ml 480 ml 480 ml Output Total 600 ml 1200 ml 800 ml Balance 600 ml -720 ml -320 ml Intake Oral 1200 ml 480 ml 480 ml Output Urine Total 600 ml 1200 ml 800 ml # Bowel Movements 1 . Laboratory Tests Test 03/29/17 04:27 Sodium Level 142 MEQ/L Potassium Level 4.0 MEQ/L Chloride Level 108 MEQ/L Carbon Dioxide Level 27.6 MEQ/L Anion Gap 6 MEQ/L Blood Urea Nitrogen 17 MG/DL Creatinine 0.98 MG/DL Estimat Glomerular Filtration 79 ML/MIN Rate Random Glucose 94 MG/DL Calcium Level 9.3 MG/DL Physical Exam CONSTITUTIONAL/GENERAL: This is an adequately nourished patient, in no apparent distress. Poor hygiene TUBES/LINES/DRAINS: SKIN: No jaundice, rashes, or lesions. Skin temperature appropriate. Not diaphoretic. EYES: No scleral icterus. ENT: Hearing grossly normal. RESPIRATORY/CHEST: Symmetric, unlabored respirations. MUSCULOSKELETAL: Extremities without clubbing, cyanosis, or edema. TP pulses palpable b/l R foot w/o ulcers or other stigmata of poor circulation R foot sp 5h ray amputation; minimal edema present stitiches in place minimal serous d/c no odor present No necrotic tissue no erythema No mottling or clubbing. NEUROLOGICAL: Awake and alert. Motor and sensory grossly within normal limits. Follows commands. Normal speech. Moves all extremities. hands shaking no longer seen PSYCHIATRIC:calm and cooperative no apparent hallucinations or other psychotic thought process. Assessment & Plan Remarks 5th toe gangrene, 5 th ray osteo, mixed aerobic/anaerobic ricky; s/p 5th ray amputation HEAVY GROWTH ENTEROCOCCUS AVIUM HEAVY GROWTH >=3 MIXED ENTERIC GRAM NEGATIVE RODS WITH NO PREDOMINANT ORGANISM. UNABLE TO RULE OUT ANAEROBES DUE TO SPREADING PROTEUS SP. No e/o diabetes; nl Hb A1 C Neuropathy with decreased bl feet sensation - / ETOH induced case was dw Deon Jimenez and Paulo in detailes foreign material present #1 fragment: likley bone form 5th digit per descitption (dw Dr Bates) # 2 fragmment MT - no osteo - clx growing Proteus S levaquine cont Unasyn for now we can use levaquine 750 mg daily eventually to complete 6 weeks of abx post op case was dw Paulo aCli case dw Eliza Kebede, case mn Angela Chen MD March 30, 2017 15:34
[2017-03-30 16:00] VITALS: BP 130/82; PULSE 67; RESP 16; TEMP 97.2; O2SAT 97
[2017-03-30 20:00] VITALS: BP 126/81; PULSE 70; RESP 20; TEMP 97.8; O2SAT 97
[2017-03-30 23:50] VITALS: BP 160/89; PULSE 61; RESP 20; TEMP 97.8; O2SAT 97
[2017-03-31] MEDS: ACETAMINOPHEN/HYDROcodone 325 MG/10 MG TAB PO PRN ×5 (00:38→21:45)
[2017-03-31] MEDS: AMPICILLIN-SULBACTAM INJ 3 GM in SODIUM CHLORIDE 0.9% INJ 100 ML IV SCH ×4 (03:54→21:46)
[2017-03-31 04:23] VITALS: BP 146/89; PULSE 58; RESP 18; TEMP 98.9; O2SAT 94
[2017-03-31] MEDS: BACITRACIN TOP OINT 15 GM TUBE TOPICAL SCH ×3 (05:36→21:49)
[2017-03-31] MEDS: INSULIN ASPART SUPPLEMENTAL SCALE SQ SCH ×4 (05:37→21:00)
[2017-03-31 06:03] LABS: AUTOMATED NEUTROPHIL # 2.6 TH/MM3 (1.8-7.7); BASOPHIL # 0.1 TH/MM3 (0-0.2); EOSINOPHIL # 0.1 TH/MM3 (0-0.4); EOSINOPHIL % 2.3 % (0.0-4.0); HEMATOCRIT 39.8 % (39.0-51.0); HEMO FLAGS DIFF FINAL; LYMPH % 36.6 % (9.0-44.0); LYMPHOCYTE # 2.1 TH/MM3 (1.0-4.8); MEAN CELL VOLUME 98.8 FL (80.0-100.0); MEAN CORPUSCULAR HEMOGLOBIN 32.4 PG (27.0-34.0); MEAN CORPUSCULAR HGB CONC 32.8 % (32.0-36.0); MONO % 15.1 % (0.0-8.0); PLATELET COUNT 210 TH/MM3 (150-450); RED BLOOD COUNT 4.02 MIL/MM3 (4.50-5.90); RED CELL DISTRIBUTION WIDTH 15.8 % (11.6-17.2); WHITE BLOOD COUNT 5.8 TH/MM3 (4.0-11.0)
[2017-03-31 06:27] LABS: BICARBONATE 27.8 MEQ/L (21.0-32.0); POTASSIUM 4.1 MEQ/L (3.5-5.1)
[2017-03-31 08:00] VITALS: BP 162/95; PULSE 56; RESP 21; TEMP 97.4; O2SAT 98
[2017-03-31] MEDS: SODIUM CHLORIDE 0.9% FLUSH 10 ML FLUSH IV FLUSH SCH ×2 (08:47→21:48)
[2017-03-31] MEDS: THIAMINE HCL 100 MG TAB PO SCH (08:47)
[2017-03-31] MEDS: DOCUSATE SODIUM 50 MG/SENNA 8.6 MG TAB PO SCH ×2 (08:47→21:00)
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
[2017-03-31] MEDS: HEPARIN SODIUM - SQ 10,000 UNITS/ML VIAL SQ SCH ×2 (10:58→21:47)
[2017-03-31 12:00] VITALS: BP 134/81; PULSE 68; RESP 17; TEMP 97; O2SAT 97
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
[2017-03-31 16:00] VITALS: BP 186/96; PULSE 59; RESP 15; TEMP 97; O2SAT 98
--- NOTE | 2017-03-31 18:18 | HHI.IDPN ---
Subjective Subjective Remarks no co afebrile Antibiotics unasyn Allergies: Coded Allergies: Bee Sting (Verified Allergy, Intermediate, SWELLS UP, 01/11/17) Objective . Vital Signs Date Time Temp Pulse Resp B/P Pulse Ox O2 Delivery O2 Flow Rate FiO2 03/31/17 12:00 97.0 68 17 134/81 97 03/31/17 08:00 97.4 56 21 162/95 98 03/31/17 05:35 18 03/31/17 04:23 98.9 58 18 146/89 94 03/30/17 23:50 97.8 61 20 160/89 97 03/30/17 20:00 97.8 70 20 126/81 97 03/30/17 03/30/17 03/31/17 15:00 23:00 07:00 Intake Total 998 ml 480 ml 680 ml Output Total 600 ml 1000 ml 1500 ml Balance 398 ml -520 ml -820 ml Intake Oral 800 ml 480 ml 480 ml IV Total 198 ml 0 ml 200 ml Output Urine Total 600 ml 1000 ml 1500 ml # Bowel Movements 1 0 . Laboratory Tests Test 03/31/17 05:15 White Blood Count 5.8 TH/MM3 Red Blood Count 4.02 MIL/MM3 Hemoglobin 13.1 GM/DL Hematocrit 39.8 % Mean Corpuscular Volume 98.8 FL Mean Corpuscular Hemoglobin 32.4 PG Mean Corpuscular Hemoglobin 32.8 % Concent Red Cell Distribution Width 15.8 % Platelet Count 210 TH/MM3 Mean Platelet Volume 9.6 FL Neutrophils (%) (Auto) 45.0 % Lymphocytes (%) (Auto) 36.6 % Monocytes (%) (Auto) 15.1 % Eosinophils (%) (Auto) 2.3 % Basophils (%) (Auto) 1.0 % Neutrophils # (Auto) 2.6 TH/MM3 Lymphocytes # (Auto) 2.1 TH/MM3 Monocytes # (Auto) 0.9 TH/MM3 Eosinophils # (Auto) 0.1 TH/MM3 Basophils # (Auto) 0.1 TH/MM3 CBC Comment DIFF FINAL Differential Comment Laboratory Tests Test 03/31/17 05:15 Sodium Level 143 MEQ/L Potassium Level 4.1 MEQ/L Chloride Level 108 MEQ/L Carbon Dioxide Level 27.8 MEQ/L Anion Gap 7 MEQ/L Blood Urea Nitrogen 14 MG/DL Creatinine 0.88 MG/DL Estimat Glomerular Filtration 89 ML/MIN Rate Random Glucose 91 MG/DL Calcium Level 9.0 MG/DL Physical Exam CONSTITUTIONAL/GENERAL: This is an adequately nourished patient, in no apparent distress. Poor hygiene TUBES/LINES/DRAINS: SKIN: No jaundice, rashes, or lesions. Skin temperature appropriate. Not diaphoretic. EYES: No scleral icterus. ENT: Hearing grossly normal. RESPIRATORY/CHEST: Symmetric, unlabored respirations. MUSCULOSKELETAL: Extremities without clubbing, cyanosis, or edema. Incision wiht small opening + increased odor + more discharged and softening of the tissues in the opened area NEUROLOGICAL: Awake and alert. Motor and sensory grossly within normal limits. Follows commands. Normal speech. Moves all extremities. + mild hands shaking PSYCHIATRIC:calm and cooperative no apparent hallucinations or other psychotic thought process. Assessment & Plan Remarks 5th toe gangrene, 5 th ray osteo, mixed aerobic/anaerobic ricky; s/p 5th ray amputation HEAVY GROWTH ENTEROCOCCUS AVIUM HEAVY GROWTH >=3 MIXED ENTERIC GRAM NEGATIVE RODS WITH NO PREDOMINANT ORGANISM. UNABLE TO RULE OUT ANAEROBES DUE TO SPREADING PROTEUS SP. No e/o diabetes; nl Hb A1 C Neuropathy with decreased bl feet sensation - / ETOH induced case was dw Deon Jimenez and Paulo in detailes foreign material present #1 fragment: likley bone form 5th digit per descitption (dw Dr Bates) # 2 fragmment MT - no osteo - clx growing Proteus S levaquine cont Unasyn for now reconsult podiatry to rechk the wound rechk clx we can use levaquine 750 mg daily eventually to complete 6 weeks of abx post op case dw Eliza Kebede, case mngr Angela Sanders RN, MD March 31, 2017 18:18
--- NOTE | 2017-03-31 18:58 | PD.POD ---
Subjective Podiatric Problems s/p right partial 5th ray amputation with on 03/24/17. Patient complains only of mild/mod pain at this time. He denies any n/v/f/h/c/sob. Pain score: 3 Past Med/Surg/Social History Social History Smoking Status: Current Every Day Smoker Objective Vital Signs Vital Signs Date Time Temp Pulse Resp B/P Pulse Ox O2 Delivery O2 Flow Rate FiO2 03/31/17 12:00 97.0 68 17 134/81 97 03/31/17 08:00 97.4 56 21 162/95 98 03/31/17 05:35 18 03/31/17 04:23 98.9 58 18 146/89 94 03/30/17 23:50 97.8 61 20 160/89 97 03/30/17 20:00 97.8 70 20 126/81 97 Coded Allergies: Bee Sting (Verified Allergy, Intermediate, SWELLS UP, 01/11/17) Physical Exam Remarks Incision site is well coapted with the exception of the most central aspect, which is a 0.6cm x 0.6cm x 0.3cm with a fibrogranular base, no erythema, mild serous drainage, no malodor. Pre ulcerative lesions on the anterior ankle and medial 1st met head, not open. Assessment & Plan A/P 1) right foot s/p partial 5th ray amputation -bone pathology shows reactive changes -dressing changes every other day, new orders written for nurses -Pt feels comfortable doing bandage changes himself if provided with supplies -WBAT in surgical shoe -ID suggesting levaquin for outpt for a total of 6 weeks, 5 weeks remaining -Follow up with after discharge Saira Posada DPM March 31, 2017 18:58
[2017-03-31 20:00] VITALS: BP_SYST 123; BP_SYST 165; BP_DIAS 60; BP_DIAS 91; PULSE 58; PULSE 96; RESP 20; RESP 22; TEMP 97.7; TEMP 97.9; O2SAT 94; O2SAT 97
[2017-04-01] VITALS: BP 163/95; PULSE 56; RESP 20; TEMP 97.6; O2SAT 97
[2017-04-01] MEDS: AMPICILLIN-SULBACTAM INJ 3 GM in SODIUM CHLORIDE 0.9% INJ 100 ML IV SCH ×4 (04:28→23:21)
[2017-04-01] MEDS: BACITRACIN TOP OINT 15 GM TUBE TOPICAL SCH ×3 (04:45→23:26)
[2017-04-01] MEDS: INSULIN ASPART SUPPLEMENTAL SCALE SQ SCH ×4 (06:48→21:00)
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
[2017-04-01 08:00] VITALS: BP 188/111; PULSE 63; RESP 16; TEMP 96.8; O2SAT 99
[2017-04-01] MEDS: HEPARIN SODIUM - SQ 10,000 UNITS/ML VIAL SQ SCH ×2 (09:56→23:22)
[2017-04-01] MEDS: DOCUSATE SODIUM 50 MG/SENNA 8.6 MG TAB PO SCH ×2 (09:57→21:00)
[2017-04-01] MEDS: SODIUM CHLORIDE 0.9% FLUSH 10 ML FLUSH IV FLUSH SCH ×2 (09:57→21:35)
[2017-04-01] MEDS: ACETAMINOPHEN/HYDROcodone 325 MG/10 MG TAB PO PRN ×4 (09:57→23:24)
[2017-04-01] MEDS: THIAMINE HCL 100 MG TAB PO SCH (09:57)
[2017-04-01 12:00] VITALS: BP 156/96; PULSE 84; RESP 18; TEMP 97.4; O2SAT 97
[2017-04-01 16:00] VITALS: BP 150/98; PULSE 80; RESP 16; TEMP 96.9; O2SAT 98
[2017-04-01 20:00] VITALS: BP 158/96; PULSE 66; RESP 18; TEMP 97.5; O2SAT 97
[2017-04-02] VITALS: BP 161/93; PULSE 60; RESP 18; TEMP 97.8; O2SAT 98
[2017-04-02] MEDS: INSULIN ASPART SUPPLEMENTAL SCALE SQ SCH ×4 (05:10→19:54)
[2017-04-02] MEDS: BACITRACIN TOP OINT 15 GM TUBE TOPICAL SCH ×3 (05:11→22:47)
[2017-04-02] MEDS: AMPICILLIN-SULBACTAM INJ 3 GM in SODIUM CHLORIDE 0.9% INJ 100 ML IV SCH ×4 (05:12→22:46)
[2017-04-02] MEDS: ACETAMINOPHEN/HYDROcodone 325 MG/10 MG TAB PO PRN ×3 (05:14→17:23)
[2017-04-02 08:00] VITALS: BP 171/104; PULSE 58; RESP 16; TEMP 95.1; O2SAT 98
[2017-04-02] MEDS: cloNIDine HCL 0.1 MG TAB PO PRN (08:55)
[2017-04-02] MEDS: DOCUSATE SODIUM 50 MG/SENNA 8.6 MG TAB PO SCH ×2 (08:56→19:53)
[2017-04-02] MEDS: THIAMINE HCL 100 MG TAB PO SCH (08:56)
[2017-04-02] MEDS: SODIUM CHLORIDE 0.9% FLUSH 10 ML FLUSH IV FLUSH SCH ×2 (08:57→19:53)
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
[2017-04-02] MEDS: HEPARIN SODIUM - SQ 10,000 UNITS/ML VIAL SQ SCH ×2 (10:34→22:46)
[2017-04-02 12:00] VITALS: BP 156/89; PULSE 59; RESP 14; TEMP 97.3; O2SAT 98
[2017-04-02 16:00] VITALS: BP 147/95; PULSE 53; RESP 16; TEMP 97.7; O2SAT 98
[2017-04-02 20:00] VITALS: BP 146/88; PULSE 59; RESP 18; TEMP 98.1; O2SAT 97
[2017-04-03] VITALS: BP 166/92; PULSE 60; RESP 18; TEMP 98.2; O2SAT 97
[2017-04-03] MEDS: AMPICILLIN-SULBACTAM INJ 3 GM in SODIUM CHLORIDE 0.9% INJ 100 ML IV SCH ×2 (05:00→08:48)
[2017-04-03] MEDS: BACITRACIN TOP OINT 15 GM TUBE TOPICAL SCH ×2 (05:00→10:49)
[2017-04-03] MEDS: ACETAMINOPHEN/HYDROcodone 325 MG/10 MG TAB PO PRN ×2 (05:05→09:07)
[2017-04-03] MEDS: INSULIN ASPART SUPPLEMENTAL SCALE SQ SCH ×3 (07:00→12:42)
[2017-04-03 08:00] VITALS: BP 174/98; PULSE 74; RESP 17; TEMP 95.8; O2SAT 99
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
[2017-04-03] MEDS: THIAMINE HCL 100 MG TAB PO SCH (08:47)
[2017-04-03] MEDS: DOCUSATE SODIUM 50 MG/SENNA 8.6 MG TAB PO SCH (08:47)
[2017-04-03] MEDS: SODIUM CHLORIDE 0.9% FLUSH 10 ML FLUSH IV FLUSH SCH (08:53)
[2017-04-03] MEDS ORDERED: LISINOPRIL 10 MG TAB PO SCH (09:00)
[2017-04-03] MEDS: HEPARIN SODIUM - SQ 10,000 UNITS/ML VIAL SQ SCH (10:49)
--- NOTE | 2017-04-03 11:35 | HHI.DCPOC ---
Discharge Care Plan Diagnosis: (1) Toe ulcer, right (2) HTN (hypertension) (3) Alcohol abuse (4) Neuropathy Goals to Promote Your Health * To prevent worsening of your condition and complications and to maintain your health at the optimal level, follow up with a primary care doctor and come back to [place] to obtain follow up labs after being discharged from the hospital. Directions to Meet Your Goals Take your medications as prescribed Follow your dietary instruction Follow activity as directed Keep your appointments as scheduled Take your immunizations and boosters as scheduled If your symptoms worsen call your PCP, if no PCP go to Urgent Care Center or Emergency Room Smoking is Dangerous to Your Health. Avoid second hand smoke Call the 24-hour hour crisis hotline for domestic abuse at Eric Suggs MD R1 April 03, 2017 11:35
[2017-04-03 12:00] VITALS: BP 145/86; PULSE 57; RESP 17; TEMP 97.3; O2SAT 98
--- NOTE | 2017-04-03 12:16 | HHI.IDPN ---
Subjective Subjective Remarks co R foot pain afebrile Antibiotics unasyn Allergies: Coded Allergies: Bee Sting (Verified Allergy, Intermediate, SWELLS UP, 01/11/17) Objective . Vital Signs Date Time Temp Pulse Resp B/P Pulse Ox O2 Delivery O2 Flow Rate FiO2 04/03/17 08:00 95.8 74 17 174/98 99 04/03/17 00:00 98.2 60 18 166/92 97 04/02/17 20:00 98.1 59 18 146/88 97 04/02/17 16:00 97.7 53 16 147/95 98 04/02/17 04/02/17 04/03/17 15:00 23:00 07:00 Intake Total 800 ml 240 ml 320 ml Output Total 600 ml 275 ml 0 ml Balance 200 ml -35 ml 320 ml Intake Oral 800 ml 240 ml 120 ml IV Total 200 ml Output Urine Total 600 ml 275 ml 0 ml # Bowel Movements 0 0 0 Imaging Last Impressions Foot X-Ray 03/24/17 0000 Signed Impressions: Service Date/Time: Friday, March 24, 2017 11:01 - CONCLUSION: 1. Fracture of the proximal phalanx of the fifth toe with dislocation of the distal toe laterally with overlap of fragments. 2. Subcutaneous emphysema and soft tissue swelling. Armando Licea MD Physical Exam CONSTITUTIONAL/GENERAL: This is an adequately nourished patient, in no apparent distress. Poor hygiene TUBES/LINES/DRAINS: SKIN: No jaundice, rashes, or lesions. Skin temperature appropriate. Not diaphoretic. EYES: No scleral icterus. RESPIRATORY/CHEST: Symmetric, unlabored respirations. MUSCULOSKELETAL: Extremities without clubbing, cyanosis, or edema. Incision wiht small opening + minimal odor minimal d/c and softening of the tissues in the opened area; area looks about the same as on Monday, definietly no worsening NEUROLOGICAL: Awake and alert. Motor and sensory grossly within normal limits. Follows commands. Normal speech. Moves all extremities. no hands shaking PSYCHIATRIC:calm and cooperative no apparent hallucinations or other psychotic thought process. Assessment & Plan Remarks 5th toe gangrene, 5 th ray osteo, mixed aerobic/anaerobic ricky; s/p 5th ray amputation HEAVY GROWTH ENTEROCOCCUS AVIUM HEAVY GROWTH >=3 MIXED ENTERIC GRAM NEGATIVE RODS WITH NO PREDOMINANT ORGANISM. UNABLE TO RULE OUT ANAEROBES DUE TO SPREADING PROTEUS SP. No e/o diabetes; nl Hb A1 C Neuropathy with decreased bl feet sensation - / ETOH induced case was dw Deon Jimenez and Paulo in detailes foreign material present #1 fragment: likley bone form 5th digit per descitption (dw Dr Bates) # 2 fragmment MT - no osteo - clx growing Proteus S levaquine Chronic alcoholism - pt isnot sure if he can quit drinking dc Unasyn start augmentin to cover for enteroccoi and anaerobs Pt can not be given flagyl because he states to me he is not sure if he will stiop drinking start levaquine 750 mg daily eventually to complete 6 weeks of abx post op OK to dc home with f/u with podiatry will need to fu ESR CRP CBC CMP weekly while on abx He might require longer abx course if clinically indicated and/or no normalilzation of inflammatiory parameters case dw Eliza Kebede, case mngr dw primary team Angela Chen MD April 03, 2017 12:16
[2017-04-03] MEDS ORDERED: AUGM875T PO (12:26)
[2017-04-03] MEDS ORDERED: LEVA750T PO (12:26)
[2017-04-03] MEDS ORDERED: AMOXICILLIN/CLAVULANATE K 875 MG TAB PO SCH (14:00)
[2017-04-04] MEDS ORDERED: LEVOFLOXACIN 750 MG TAB PO SCH (09:00)
== END 2017-04-03 16:53 | disposition home or self-care (01) | DRG 478 ==
LOC: NEPE 09:31 → NEDA 11:20 → N07A 13:13
PROVIDERS: ADMIT Family Medicine; ATTEND Family Medicine
PROC: 0Y6X0Z0 Detachment at Right 5th Toe, Complete, Open Approach (ICD-10-PCS; 2017-03-24)
PROC: 0QBN0ZX Excision of Right Metatarsal, Open Approach, Diagnostic (ICD-10-PCS; principal; 2017-03-24 17:15)
DX: M86.171 Other acute osteomyelitis, right ankle and foot (principal); I96 Gangrene, not elsewhere classified; L97.519 Non-pressure chronic ulcer of other part of right foot with unspecified severity; G62.9 Polyneuropathy, unspecified; S93.114A Dislocation of interphalangeal joint of right lesser toe(s), initial encounter; X58.XXXA Exposure to other specified factors, initial encounter; Z59.0 Homelessness; F10.10 Alcohol abuse, uncomplicated; I10 Essential (primary) hypertension; F17.210 Nicotine dependence, cigarettes, uncomplicated; Z83.3 Family history of diabetes mellitus; K59.00 Constipation, unspecified
CPT/HCPCS: 73630; 80048; 80053; 82607; 82746; 82948; 83036; 84425; 85025; 85652; 86140; 87015; 87070; 87077; 87102; 87116; 87186; 87205; 87206; 88304; 88305; 88307; 88311; 94150; 94664; 96374; J0295; J1100; J1644; J2250; J2270; J2405; J2543; J3010; J7613; L3260

== ENCOUNTER 2017-04-13 13:05 | Emergency (ER) | payer SELFPAY ==
[~2017-04-13] VITALS: Ht 182.9 cm; Wt 86.0 kg
[~2017-04-13 13:05] MED LIST changes: +AUGM875T PO; +LEVA750T PO; -LORA-392 PO
[2017-04-13 13:13] VITALS: BP 150/90; PULSE 100; RESP 16; TEMP 98.3; O2SAT 100
--- NOTE | 2017-04-13 13:31 | PD ---
Physical Exam Time Seen by Provider: 13:26 Narrative 56yo M c/o fall today and was not able to get up because of weakness. Denies hitting head, LOC, neck pain, back pain. Reports R elbow, forearm pain. Also needs sutures removed from R toe amputation a couple weeks ago. Reports cold and hot sweats. Reports ETOH use; a couple drinks today. After fall he tried to get up and ended up defecating and urinating on himself because he couldn't get up. Patient seen in triage. VS reviewed. Awaiting bed placement. Data Data Last Documented VS Vital Signs Date Time Temp Pulse Resp B/P Pulse Ox O2 Delivery O2 Flow Rate FiO2 04/13/17 13:13 98.3 100 16 150/90 100 MDM Supervised Visit with CAMILLE: Edilia Lynch Apr 13, 2017 13:31
--- NOTE | 2017-04-13 15:39 | PD ---
HPI Chief Complaint: Fall Time Seen by Provider: 14:04 Travel History International Travel<30 days: No Contact w/Intl Traveler<30days: No Traveled to known affect area: No History of Present Illness HPI This is a 56-year-old male who had a digital and partial metatarsal amputation performed on March [address] Bates in the setting of a necrotic ulcer on his foot. Patient is an alcoholic and is homeless. He was discharged and has been taking both Levaquin and amoxicillin and has been doing well but returns to the emergency department to have his sutures taken out. He did not follow up in outpatient clinic. He said that someone told him to come to the emergency department because he felt weak but currently he felt fine and has no complaints except wanting his sutures removed. He denies any fevers or chills. PFSH Past Medical History Arthritis: Yes Asthma: No Autoimmune Disease: No Anxiety: No Depression: No Heart Rhythm Problems: No Cancer: No Cardiovascular Problems: No High Cholesterol: No Chemotherapy: No Chest Pain: No Congestive Heart Failure: No COPD: Yes Cerebrovascular Accident: No Diabetes: No Diminished Hearing: No Deep Vein Thrombosis: Yes Endocrine: No Genitourinary: No Hepatitis: Yes Hypertension: Yes Immune Disorder: No Musculoskeletal: No Neurologic: No Psychiatric: No Reproductive: No Respiratory: Yes Integumentary: Yes (SX WOUND R FOOT, SKIN WOUND R FOOT ) Immunizations Current: No Migraines: No Radiation Therapy: No Seizures: No Sickle Cell Disease: No Sleep Apnea: No Thyroid Disease: No Past Surgical History AICD: No Arteriovenous Shunt: No Insulin Pump: No Joint Replacement: No Pacemaker: No Other Surgery: Yes (Finger surgery) Social History Alcohol Use: Yes Tobacco Use: Yes Substance Use: No Allergies-Medications (Allergen,Severity, Reaction): Coded Allergies: Bee Sting (Verified Allergy, Intermediate, SWELLS UP, 04/13/17) Reported Meds & Prescriptions Reported Meds & Active Scripts Active Augmentin (Amoxicillin-Clavulanate) 875-125 mg Tab 875 Mg PO BID 14 Days not for use in CrCl <30 ml/min. Levaquin (Levofloxacin) 750 Mg Tab 750 Mg PO DAILY 42 Days Review of Systems Except as stated in HPI: all other systems reviewed are Neg Physical Exam Narrative GENERAL: Disheveled SKIN: Wound on lateral right foot is well healing with minimal warmth, no induration or fluctuance.. HEAD: Atraumatic. Normocephalic. EYES: Pupils equal and round. No injection or drainage. ENT: Moist mucous membranes NECK: Trachea midline. CARDIOVASCULAR: Regular rate and rhythm. No murmur appreciated. RESPIRATORY: Clear to auscultation. Breath sounds equal bilaterally. GASTROINTESTINAL: Abdomen soft, non-tender, nondistended. MUSCULOSKELETAL: No obvious deformities. NEUROLOGICAL: Awake and alert. No obvious cranial nerve deficits. Moving all extremities. PSYCHIATRIC: Appropriate mood and affect; insight and judgment normal. Data Data Last Documented VS Vital Signs Date Time Temp Pulse Resp B/P Pulse Ox O2 Delivery O2 Flow Rate FiO2 04/13/17 13:13 98.3 100 16 150/90 100 MDM Medical Decision Making Medical Screen Exam Complete: Yes Emergency Medical Condition: Yes Interpretation(s) Afebrile, mild tachycardia, mild hypertension Differential Diagnosis Healing wound, wound infection, osteomyelitis Narrative Course This is a 56-year-old male who had partial metatarsal amputation performed 2-1/ [address] Bates. It appears to be well healing. I spoke to Dr. Cantor and who was on-call for podiatry. She agreed if the wound appears intact that I can remove the sutures. One retention suture was removed. Patient tolerated the procedure well. I don't appreciate any signs of infection at this time and I think he's safe for discharge. Diagnosis Primary Impression: Visit for suture removal Patient Instructions: General Instructions Additional Instructions: If you develop fever, increasing redness, warmth, or spreading of your infection , or severe pain return to the emergency department immediately as you may require antibiotics through your IV. Complete your course of antibiotics as prescribed. Med/Other Pt SpecificInfo: No Change to Meds Disposition: 01 DISCHARGE HOME Condition: Stable Michelle Mejia MD Apr 13, 2017 15:39
== END 2017-04-13 16:26 | disposition home or self-care (01) ==
LOC: NEPD 13:05
DX: Z98.890 Other specified postprocedural states (principal); Z48.02 Encounter for removal of sutures; Z89.421 Acquired absence of other right toe(s)
CPT/HCPCS: 99281

== ENCOUNTER 2017-06-01 08:58 | Inpatient (IN) | payer SELFPAY ==
[~2017-06-01] VITALS: Ht 182.9 cm; Wt 85.0 kg
[2017-06-01 09:00] VITALS: BP 119/79; PULSE 133; RESP 20; TEMP 97.7; O2SAT 98
--- NOTE | 2017-06-01 09:12 | PD ---
HPI . right elbow infection Chief Complaint: Skin Problem Time Seen by Provider: 09:12 Travel History International Travel<30 days: No Contact w/Intl Traveler<30days: No Traveled to known affect area: No History of Present Illness HPI 56 yr old male here with c/o right elbow infection. He tells me he initially fell about 3 weeks ago and had a wound to the right elbow. He was somehow in custodial for a period of time and also felt there twice. He has not had any generalized wound care or antibiotics for this infection and it has seemed to have grown. Patient is here now requesting treatment as he noticed that the amount of pus coming out of it is a little bit more than usual. He denies any fever or chills. He denies any IV drug use. He admits to smoking and etoh. PFSH Past Medical History Arthritis: Yes Asthma: No Autoimmune Disease: No Anxiety: No Depression: No Heart Rhythm Problems: No Cancer: No Cardiovascular Problems: No High Cholesterol: No Chemotherapy: No Chest Pain: No Congestive Heart Failure: No COPD: Yes Cerebrovascular Accident: No Diabetes: No Diminished Hearing: No Deep Vein Thrombosis: Yes Endocrine: No Genitourinary: No Hepatitis: Yes Hypertension: Yes Immune Disorder: No Musculoskeletal: No Neurologic: No Psychiatric: No Reproductive: No Respiratory: Yes Integumentary: Yes (SX WOUND R FOOT, SKIN WOUND R FOOT ) Immunizations Current: No Migraines: No Radiation Therapy: No Seizures: No Sickle Cell Disease: No Sleep Apnea: No Thyroid Disease: No Past Surgical History AICD: No Arteriovenous Shunt: No Insulin Pump: No Joint Replacement: No Pacemaker: No Other Surgery: Yes (Finger surgery) Social History Alcohol Use: Yes Tobacco Use: Yes Substance Use: No Allergies-Medications (Allergen,Severity, Reaction): Coded Allergies: Bee Sting (Verified Allergy, Intermediate, SWELLS UP, 04/13/17) Reported Meds & Prescriptions Reported Meds & Active Scripts Active Augmentin (Amoxicillin-Clavulanate) 875-125 mg Tab 875 Mg PO BID 14 Days not for use in CrCl <30 ml/min. Levaquin (Levofloxacin) 750 Mg Tab 750 Mg PO DAILY 42 Days Review of Systems General / Constitutional: No: Fever Eyes: No: Visual changes HENT: No: Headaches Cardiovascular: No: Chest Pain or Discomfort Respiratory: No: Shortness of Breath Gastrointestinal: No: Abdominal Pain Genitourinary: No: Dysuria Musculoskeletal: Positive: Pain (right elbow ) Skin: Positive Other (right elbow wound/infection ), No Rash Neurologic: No: Weakness Psychiatric: No: Depression Endocrine: No: Polydipsia Hematologic/Lymphatic: No: Easy Bruising Physical Exam Narrative GENERAL: AAO x 3, no acute distress, Well-nourished, well-developed patient. Disheveled appearance, smells of urine SKIN:right elbow erythema, tender to touch, visible purulence, increased warmth of area HEAD: Normocephalic and atraumatic. EYES: No scleral icterus. No injection or drainage. ENT: No nasal drainage noted. Airway patent. NECK: Supple, trachea midline. No JVD. CARDIOVASCULAR: tachycardic on exam RESPIRATORY: Breath sounds diminished bilaterally. GASTROINTESTINAL: visual inspection normal EXTREMITIES:, edema to the right elbow, tender to touch, infected, ROM is normal , but elicits pain. BACK: No obvious deformity. NEURO: CN II-12 intact, PSYCH: AAO x 3, normal affect. Data Data Last Documented VS Vital Signs Date Time Temp Pulse Resp B/P Pulse Ox O2 Delivery O2 Flow Rate FiO2 06/01/17 09:00 97.7 133 20 119/79 98 Room Air MDM Medical Decision Making Medical Screen Exam Complete: Yes Emergency Medical Condition: Yes Medical Record Reviewed: Yes Differential Diagnosis right elbow cellulitis, sepsis, septic joint Narrative Course 56 yr old male here with c/o right elbow wound that is infected. On exam he does have an infected wound on his right elbow that is visibly purulent. He is tachycardic on exam. He will need a medical bed for further workup and treatment. I have discussed the case with Dr. Holguin, who will determine patient's disposition. Condition: Stable Alexa Louise Jun 01, 2017 09:12
[2017-06-01] MEDS ORDERED: SODIUM CHLOR 0.9% 1000 ML INJ 1,000 ML IV ONE ×2 (09:30)
[2017-06-01] MEDS ORDERED: VANCOMYCIN INJ 1,000 MG in SODIUM CHLOR 0.9% 250 ML INJ 250 ML IV STA (09:30)
[2017-06-01] MEDS ORDERED: SODIUM CHLOR 0.9% 1000 ML INJ 700 ML IV ONE (09:30)
[2017-06-01] MEDS ORDERED: PIPERACIL-TAZO 4.5 GM PREMIX 100 ML IV STA (09:30)
--- NOTE | 2017-06-01 09:34 | PD ---
HPI Chief Complaint: Skin Problem Time Seen by Provider: 09:26 Travel History International Travel<30 days: No Contact w/Intl Traveler<30days: No Traveled to known affect area: No History of Present Illness HPI 56-year-old male came to the emergency room with history of right elbow swelling and infection. Patient says that he fell couple weeks ago on that elbow and developed some swelling. He was incarcerated in to the longterm for past 2-3 days. He says that he was released from the longterm couple days ago and after that it popped. It has been draining pus since then. Today he decided to come and be checked out. He can move his arm at the elbow joint. He was tachycardic in 120s in triage. He was afebrile. The elbow looked swollen and covered in dirty purulent material. [facility] Past Medical History Narrative Medical List of his past medical, surgical, social and family history is reviewed from the nursing note. Arthritis: Yes Asthma: No Autoimmune Disease: No Anxiety: No Depression: No Heart Rhythm Problems: No Cancer: No Cardiovascular Problems: No High Cholesterol: No Chemotherapy: No Chest Pain: No Congestive Heart Failure: No COPD: Yes Cerebrovascular Accident: No Diabetes: No Diminished Hearing: No Deep Vein Thrombosis: Yes Endocrine: No Genitourinary: No Hepatitis: Yes Hypertension: Yes Immune Disorder: No Musculoskeletal: No Neurologic: No Psychiatric: No Reproductive: No Respiratory: Yes Integumentary: Yes (SX WOUND R FOOT, SKIN WOUND R FOOT ) Immunizations Current: No Migraines: No Radiation Therapy: No Seizures: No Sickle Cell Disease: No Sleep Apnea: No Thyroid Disease: No Past Surgical History AICD: No Arteriovenous Shunt: No Insulin Pump: No Joint Replacement: No Pacemaker: No Other Surgery: Yes (Finger surgery) Social History Alcohol Use: Yes Tobacco Use: Yes Substance Use: No Allergies-Medications (Allergen,Severity, Reaction): Coded Allergies: Bee Sting (Verified Allergy, Intermediate, SWELLS UP, 04/13/17) Comments List of his allergies reviewed from the nursing note Reported Meds & Prescriptions Reported Meds & Active Scripts Active Augmentin (Amoxicillin-Clavulanate) 875-125 mg Tab 875 Mg PO BID 14 Days not for use in CrCl <30 ml/min. Levaquin (Levofloxacin) 750 Mg Tab 750 Mg PO DAILY 42 Days Narrative Medication List of his home medications reviewed from the nursing note. Review of Systems Except as stated in HPI: all other systems reviewed are Neg Physical Exam Narrative GENERAL: Awake, alert, moderate distress SKIN: Focused skin assessment warm/dry. Right elbow is swollen, warm to touch, erythematous, chest superficial to the lateral epicondyles there is a defect that runs deep and the bone underneath can be seen. Patient is ranging the joint good but when he does that purulent material drains out. HEAD: Atraumatic. Normocephalic. EYES: Pupils equal and round. No scleral icterus. No injection or drainage. ENT: No nasal bleeding or discharge. Mucous membranes pink and moist. NECK: Trachea midline. No JVD. CARDIOVASCULAR: Regular rate and rhythm. No murmur appreciated. RESPIRATORY: No accessory muscle use. Clear to auscultation. Breath sounds equal bilaterally. GASTROINTESTINAL: Abdomen soft, non-tender, nondistended. Hepatic and splenic margins not palpable. MUSCULOSKELETAL: No obvious deformities. No clubbing. No cyanosis. No edema. NEUROLOGICAL: Awake and alert. No obvious cranial nerve deficits. Motor grossly within normal limits. Normal speech. PSYCHIATRIC: Appropriate mood and affect; insight and judgment normal. Data Data Last Documented VS Vital Signs Date Time Temp Pulse Resp B/P Pulse Ox O2 Delivery O2 Flow Rate FiO2 06/01/17 10:06 18 97 Room Air 06/01/17 09:00 97.7 133 119/79 Orders Complete Blood Count With Diff (06/01/17 09:30) Comprehensive Metabolic Panel (06/01/17 09:30) Lactic Acid Sepsis Protocol (06/01/17 09:30) Urinalysis - C+S If Indicated (06/01/17 09:30) Blood Culture (06/01/17 09:30) Chest, Single Ap (06/01/17 09:30) Blood Glucose (06/01/17 09:30) Ecg Monitoring (06/01/17 09:30) Iv Access Insert/Monitor (06/01/17 09:30) Oximetry (06/01/17 09:30) Oxygen Administration (06/01/17 09:30) Piperacil-Tazo 4.5 Gm Premix (Zosyn 4.5 (06/01/17 09:30) Vancomycin Inj (Vancomycin Inj) (06/01/17 09:30) Sodium Chlor 0.9% 1000 Ml Inj (Ns 1000 M (06/01/17 09:30) Sodium Chlor 0.9% 1000 Ml Inj (Ns 1000 M (06/01/17 09:30) Sodium Chlor 0.9% 1000 Ml Inj (Ns 1000 M (06/01/17 09:30) [employer]ound [employer] Culture And Stain (06/01/17 09:30) Mri Joint Elbow W&W/O Contrast (06/01/17 ) Potassium Chloride (Kcl) (06/01/17 10:45) Potassium Chlor 10 Meq Premix (Kcl 10 Me (06/01/17 10:45) Wound Culture And Gram Stain (06/01/17 10:40) Admit Order (Ed Use Only) (06/01/17 11:53) Labs Laboratory Tests Test 06/01/17 06/01/17 09:50 09:51 White Blood Count 7.5 TH/MM3 Red Blood Count 3.87 MIL/MM3 Hemoglobin 13.0 GM/DL Hematocrit 38.0 % Mean Corpuscular Volume 98.1 FL Mean Corpuscular Hemoglobin 33.6 PG Mean Corpuscular Hemoglobin 34.3 % Concent Red Cell Distribution Width 16.4 % Platelet Count 141 TH/MM3 Mean Platelet Volume 9.8 FL Neutrophils (%) (Auto) 70.1 % Lymphocytes (%) (Auto) 15.8 % Monocytes (%) (Auto) 13.2 % Eosinophils (%) (Auto) 0.6 % Basophils (%) (Auto) 0.3 % Neutrophils # (Auto) 5.3 TH/MM3 Lymphocytes # (Auto) 1.2 TH/MM3 Monocytes # (Auto) 1.0 TH/MM3 Eosinophils # (Auto) 0.0 TH/MM3 Basophils # (Auto) 0.0 TH/MM3 CBC Comment DIFF FINAL Differential Comment Sodium Level 137 MEQ/L Potassium Level 3.1 MEQ/L Chloride Level 101 MEQ/L Carbon Dioxide Level 26.8 MEQ/L Anion Gap 9 MEQ/L Blood Urea Nitrogen 20 MG/DL Creatinine 1.18 MG/DL Estimat Glomerular Filtration 63 ML/MIN Rate Random Glucose 110 MG/DL Calcium Level 9.5 MG/DL Total Bilirubin 1.0 MG/DL Aspartate Amino Transf 30 U/L (AST/SGOT) Alanine Aminotransferase 34 U/L (ALT/SGPT) Alkaline Phosphatase 61 U/L Total Protein 8.4 GM/DL Albumin 3.2 GM/DL Lactic Acid Level 2.0 mmol/L MDM Medical Decision Making Medical Screen Exam Complete: Yes Emergency Medical Condition: Yes Medical Record Reviewed: Yes Differential Diagnosis Abscess, cellulitis, osteomyelitis, septic arthritis Narrative Course 12 PM patient was given antibiotic and fluid as per sepsis protocol. Blood test results came back and potassium was low which was replaced. Lactic acid was borderline. I have ordered an MRI of the elbow to rule out any osteomyelitis or septic arthritis. Given the severity of the infection the way it clinically appears I have decided to admit this patient. Patient is comfortable with that plan. I spoke with the hospitalist with except of the case. Critical Care Narrative Aggregate critical care time was 30 minutes. Time to perform other separately billable procedures was not included in the critical care time. My time did not include minutes spent treating any other patients simultaneously or on activities that did not directly contribute to the patient's treatment. The services I provided to this patient were to treat and/or prevent clinically significant deterioration that could result in: Sepsis, sepsis protocol I provided critical care services requiring my management, as noted below: Chart data review, documentation time, medication orders and management, vital sign assessments/reviewing monitor data, ordering and reviewing lab tests, ordering and interpreting/reviewing x-rays and diagnostic studies, care of the patient and discussion of the patient with the admitting physicians. Procedures EKG Prior to Arrival: No Sepsis Criteria SIRS Criteria (2 or more): Heart rate over 90 Sepsis Criteria (SIRS+source): Infect source susp/known Diagnosis Primary Impression: Sepsis Qualified Code: A41.9 - Sepsis, due to unspecified organism Additional Impressions: Wound of skin Cellulitis of skin Abscess Admitting Information Admitting Physician Requests: Admit Additional Instructions: Try to keep this area clean with soap and water daily. Please return to emergency department if your symptoms return or worsen. Follow up with your primary care provider. Take medications as prescribed. [place]bler for worsening signs of infection which include fever, increased redness , increased warmth, purulent drainage, increased swelling or streaking. If any of these develop, please go to the nearest emergency room. Condition: Stable John Holguin MD Jun 01, 2017 09:34 Primary Impression: Sepsis Qualified Code: A41.9 - Sepsis, due to unspecified organism Additional Impressions: Wound of skin Cellulitis of skin Abscess Admitting Information Admitting Physician Requests: Admit Additional Instructions: Try to keep this area clean with soap and water daily. Please return to emergency department if your symptoms return or worsen. Follow up with your primary care provider. Take medications as prescribed. Imbler for worsening signs of infection which include fever, increased redness , increased warmth, purulent drainage, increased swelling or streaking. If any of these develop, please go to the nearest emergency room. Condition: Stable John Holguin MD Jun 01, 2017 09:34
[2017-06-01 10:06] VITALS: RESP 18; O2SAT 97
[2017-06-01 10:11] LABS: AUTOMATED NEUTROPHIL # 5.3 TH/MM3 (1.8-7.7); BASOPHIL % 0.3 % (0.0-2.0); EOSINOPHIL % 0.6 % (0.0-4.0); HEMO FLAGS DIFF FINAL; LYMPH % 15.8 % (9.0-44.0); LYMPHOCYTE # 1.2 TH/MM3 (1.0-4.8); MEAN CELL VOLUME 98.1 FL (80.0-100.0); MEAN CORPUSCULAR HEMOGLOBIN 33.6 PG (27.0-34.0); MEAN CORPUSCULAR HGB CONC 34.3 % (32.0-36.0); MONO % 13.2 % (0.0-8.0); NEUT % 70.1 % (16.0-70.0); PLATELET COUNT 141 TH/MM3 (150-450); RED BLOOD COUNT 3.87 MIL/MM3 (4.50-5.90); RED CELL DISTRIBUTION WIDTH 16.4 % (11.6-17.2); WHITE BLOOD COUNT 7.5 TH/MM3 (4.0-11.0)
[2017-06-01 10:26] LABS: ALT (GPT) 34 U/L (12-78); ANION GAP 9 MEQ/L (5-15); AST (GOT) 30 U/L (15-37); BICARBONATE 26.8 MEQ/L (21.0-32.0); BLOOD UREA NITROGEN 20 MG/DL (7-18); CHLORIDE 101 MEQ/L (98-107); GLOMERULAR FILTRATION RATE 63 ML/MIN (>89); POTASSIUM 3.1 MEQ/L (3.5-5.1); SODIUM (NA) 137 MEQ/L (136-145)
[2017-06-01 10:28] LABS: ALKALINE PHOSPHATASE 61 U/L (45-117)
--- NOTE | 2017-06-01 10:38 | RADRPT ---
EXAM DATE/TIME: 06/01/2017 10:15 [facility] COMPARISON: No previous studies available for comparison. INDICATIONS : Cough, short of breath. MEDICAL HISTORY : Chronic obstructive pulmonary disease. SURGICAL HISTORY : None. ENCOUNTER: Initial ACUITY: 1 day PAIN SCORE: 0/10 LOCATION: Bilateral chest FINDINGS: A single view of the chest demonstrates the lungs to be symmetrically aerated without evidence of mas s, infiltrate or effusion. The cardiomediastinal contours are unremarkable. Osseous structures are intact with numerous healed left-sided rib fractures. CONCLUSION: Normal examination. Galo Guerrero MD on June 01, 2017 at 10:36 Board Certified Radiologist. This report was verified electronically.
[2017-06-01] MEDS ORDERED: POTASSIUM CHLORIDE 20 MEQ CONTROLLED RELEASE TAB PO ONE (10:45)
[2017-06-01] MEDS ORDERED: POTASSIUM CHLOR 10 MEQ PREMIX 100 ML IV ONE (10:45)
[2017-06-01] MEDS ORDERED: BISACODYL 10 MG SUPP RECTAL PRN (12:00)
[2017-06-01] MEDS ORDERED: NALOXONE HCL 0.4 MG/ML AMP IV PRN (12:00)
[2017-06-01] MEDS ORDERED: SENNOSIDES 8.6 MG TAB PO PRN (12:00)
[2017-06-01] MEDS ORDERED: ONDANSETRON HCL 4 MG/2 ML VIAL IVP PRN (12:00)
[2017-06-01] MEDS ORDERED: MAGNESIUM HYDROXIDE SUSP 30 ML CUP PO PRN (12:00)
[2017-06-01] MEDS ORDERED: SODIUM CHLORIDE 0.9% FLUSH 10 ML FLUSH IV FLUSH PRN (12:00)
[2017-06-01] MEDS ORDERED: Vancomycin Consult Pharmacy 1 EA OTHER SCH (12:00)
[2017-06-01] MEDS ORDERED: GADODIAMIDE PF 287 MG/ML 20 ML VIAL (for RAD MRI) IV ONE (13:10)
[2017-06-01] MEDS ORDERED: ACETAMINOPHEN 325 MG TAB PO PRN ×2 (14:00)
[2017-06-01] MEDS ORDERED: LACTULOSE SYRUP 20 GM/30 ML CUP PO PRN (14:00)
[2017-06-01] MEDS ORDERED: ACETAMINOPHEN/HYDROcodone 325 MG/5 MG TAB PO PRN (14:00)
--- NOTE | 2017-06-01 14:05 | RADRPT ---
EXAM DATE/TIME: 06/01/2017 12:04 [facility] COMPARISON: No previous studies available for comparison. INDICATIONS : Osteomyelitis. Wound on elbow for one week. CONTRAST: 17 cc Omniscan (gadodiamide) IV MEDICAL HISTORY : Hypertension. Chronic obstructive pulmonary disease. SURGICAL HISTORY : Right leg. ENCOUNTER: Initial ACUITY: 1 week PAIN SCORE: 6/10 LOCATION: Right elbow. TECHNIQUE: Multiplanar, multisequence MRI examination was performed without contrast and after the intravenous a dministration of gadolinium. FINDINGS: BONE/CARTILAGE: Bone marrow signal is homogeneous. Articular cartilage signal is within normal limits. TENDONS: All of the visualized tendons are intact. LIGAMENTS: The radial collateral and ulnar collateral ligament complexes are intact. MISCELLANEOUS: No evidence of joint effusion. Ulnar nerve is within normal limits. POST-CONTRAST: No abnormal areas of enhancement on the post-contrast images except marked soft tissue swelling acros s the elbow. CONCLUSION: Normal examination. Severe soft tissue edema across the elbow. Galo Guerrero MD on June 01, 2017 at 14:03 Board Certified Radiologist. This report was verified electronically.
--- NOTE | 2017-06-01 14:07 | HHI.HP ---
[facility] No Primary Care Physician Admission Diagnosis elbow abscess Diagnoses: (1) Abscess (2) Hypertension (3) Alcohol abuse Chief Complaint: Elbow infection Travel History International Travel<30 Days: No Contact w/Intl Traveler <30 Da: No Traveled to Known Affected Are: No Sepsis Criteria SIRS Criteria (2 or more): Heart rate over 90 History of Present Illness The patient is a 56-year-old male who presented to the emergency department with complaint of infection of the right elbow. He states that started a few days ago. He reports that he was arrested a few nights ago and spent the night in nursing home. He states that he had an alcohol withdrawal seizure at that time and hit his elbow when he fell. He reports no other injuries. He states that the elbow continued to swell and became extremely painful. It became erythematous as well. He denies fever, chills, night sweats. He states that he fell again and landed on his elbow. When he hit it that time, the elbow started draining a large amount of pus. It has continued to drain. It is less painful now, but still painful with flexion and extension of the elbow. Review of Systems Constitutional: DENIES: Fever, Chills, Night Sweats Eyes: DENIES: Blurred vision, Vision loss Ears, nose, mouth, throat: DENIES: Hearing loss Respiratory: DENIES: Cough, Wheezing, Sputum production, Shortness of breath Cardiovascular: DENIES: Chest pain, Palpitations, Dyspnea on Exertion, Lower Extremity Edema Gastrointestinal: DENIES: Abdominal pain, Constipation, Diarrhea, Nausea, Vomiting Genitourinary: DENIES: Urinary frequency, Urinary incontinence, Urgency, Hematuria, Dysuria, Nocturia Musculoskeletal: DENIES: Joint pain, Muscle aches Integumentary: DENIES: Pruritus, Rash Hematologic/lymphatic: DENIES: Bruising Neurologic: DENIES: Headache Past Family Social History Past Medical History Hypertension Alcohol abuse Past Surgical History Leg surgery Toe amputation Reported Medications Augmentin (Amoxicillin-Clavulanate) 875-125 mg Tab 875 Mg PO BID 14 Days not for use in CrCl <30 ml/min. Levaquin (Levofloxacin) 750 Mg Tab 750 Mg PO DAILY 42 Days Allergies: Coded Allergies: Bee Sting (Verified Allergy, Intermediate, SWELLS UP, 04/13/17) Family History His mother had cancer. Social History He reports heavy alcohol use. Last drink was 3 days ago. He smokes a pack per day. Denies illicit drug use. Physical Exam Vital Signs Vital Signs Date Time Temp Pulse Resp B/P Pulse Ox O2 Delivery O2 Flow Rate FiO2 06/01/17 10:06 18 97 Room Air 06/01/17 10:06 96 Room Air 06/01/17 09:00 97.7 133 20 119/79 98 Room Air Physical Exam GENERAL: Disheveled male in no acute distress. HEENT: Normocephalic, atraumatic. Pupils equal, round and reactive. Extraocular movements intact. No scleral icterus. No injection or drainage. Oropharynx is clear. Mucous membranes are moist. CARDIOVASCULAR: Regular rate and rhythm without murmurs, gallops, or rubs. RESPIRATORY: Clear to auscultation. No wheezes, rales, or rhonchi. Breathing is non-labored. GASTROINTESTINAL: Abdomen soft, non-tender, nondistended. EXTREMITIES: No lower extremity edema. No calf tenderness. Right elbow with erythema and edema. There is an open wound with a small amount of pustular drainage. He has somewhat decreased range of motion of the elbow with flexion and extension. PSYCH: Alert and oriented x 3. Laboratory Laboratory Tests Test 06/01/17 06/01/17 09:50 09:51 White Blood Count 7.5 Red Blood Count 3.87 Hemoglobin 13.0 Hematocrit 38.0 Mean Corpuscular Volume 98.1 Mean Corpuscular Hemoglobin 33.6 Mean Corpuscular Hemoglobin 34.3 Concent Red Cell Distribution Width 16.4 Platelet Count 141 Mean Platelet Volume 9.8 Neutrophils (%) (Auto) 70.1 Lymphocytes (%) (Auto) 15.8 Monocytes (%) (Auto) 13.2 Eosinophils (%) (Auto) 0.6 Basophils (%) (Auto) 0.3 Neutrophils # (Auto) 5.3 Lymphocytes # (Auto) 1.2 Monocytes # (Auto) 1.0 Eosinophils # (Auto) 0.0 Basophils # (Auto) 0.0 CBC Comment DIFF FINAL Differential Comment Sodium Level 137 Potassium Level 3.1 Chloride Level 101 Carbon Dioxide Level 26.8 Anion Gap 9 Blood Urea Nitrogen 20 Creatinine 1.18 Estimat Glomerular Filtration 63 Rate Random Glucose 110 Calcium Level 9.5 Total Bilirubin 1.0 Aspartate Amino Transf 30 (AST/SGOT) Alanine Aminotransferase 34 (ALT/SGPT) Alkaline Phosphatase 61 Total Protein 8.4 Albumin 3.2 Lactic Acid Level 2.0 Date/Time Procedure Status Source Growth 06/01/17 11:00 Gram Stain Received Wound Elbow Pending 06/01/17 11:00 Wound Culture Received Wound Elbow Pending 06/01/17 09:50 Aerobic Blood Culture Received Blood Peripheral Pending 06/01/17 09:50 Anaerobic Blood Culture Received Blood Peripheral Pending Result Diagram: 06/01/1750 06/01/17949 Imaging Last Impressions Chest X-Ray 06/01/17929 Signed Impressions: Service Date/Time: May 10:15 - CONCLUSION: Normal examination. Galo Guerrero MD Assessment and Plan Assessment and Plan 1. Right elbow abscess: Continue IV antibiotics. MRI of the elbow is pending. Consult orthopedic surgery. 2. Hypertension: Blood pressure is well controlled. Not currently on medications. 3. Hypokalemia: Supplemented in the ER. Recheck labs in the morning. 4. DVT prophylaxis: Donald, CASTILLO garcia. 5. Alcohol abuse: Patient was counseled. He states that he had withdrawal symptoms a few days ago, but they have improved. He does not appear to be having withdrawal at this time. Will cover with CIWA protocol. 6. Tobacco abuse: Counseled to quit smoking. Mikey Montes MD Jun 01, 2017 14:07
[2017-06-01 15:30] VITALS: BP 140/91; PULSE 69; RESP 18; TEMP 98.8; O2SAT 98
[2017-06-01 15:42] LABS: BLOOD, URINE NEG (NEG); GLUCOSE,URINE NEG (NEG); KETONE, URINE NEG (NEG); NITRITE,URINE NEG (NEG); SQUAMOUS EPITHELIAL CELL URINE <1 /hpf (0-5); URINE COLOR LIGHT-YELLOW (YELLW/STRAW)
[2017-06-01 15:43] LABS: COMMENT (UR) CATH-CULT NOT IND; CULTURE IF INDICATED CATH CULTURE NOT IND
[2017-06-01] MEDS: PIPERACIL-TAZO 3.375 GM PREMIX 50 ML IV SCH ×2 (15:46→22:16)
[2017-06-01] MEDS: ACETAMINOPHEN/HYDROcodone 325 MG/7.5 MG TAB PO PRN ×2 (18:08→21:59)
[2017-06-01 20:00] VITALS: BP 147/84; PULSE 74; RESP 20; TEMP 96.6; O2SAT 95
[2017-06-01] MEDS: SODIUM CHLORIDE 0.9% FLUSH 10 ML FLUSH IV FLUSH SCH (21:59)
[2017-06-01] MEDS: DOCUSATE SODIUM 50 MG/SENNA 8.6 MG TAB PO SCH (21:59)
[2017-06-02] VITALS: BP 175/97; PULSE 73; RESP 20; TEMP 96.8; O2SAT 96
[2017-06-02] MEDS: VANCOMYCIN INJ 1,250 MG in SODIUM CHLOR 0.9% 250 ML INJ 250 ML IV SCH ×2 (00:23→17:41)
[2017-06-02] MEDS: ACETAMINOPHEN/HYDROcodone 325 MG/7.5 MG TAB PO PRN ×3 (05:52→20:46)
[2017-06-02] MEDS: PIPERACIL-TAZO 3.375 GM PREMIX 50 ML IV SCH ×4 (05:52→20:39)
[2017-06-02 05:55] LABS: AUTOMATED NEUTROPHIL # 2.4 TH/MM3 (1.8-7.7); BASOPHIL % 0.7 % (0.0-2.0); EOSINOPHIL # 0.1 TH/MM3 (0-0.4); EOSINOPHIL % 2.1 % (0.0-4.0); HEMATOCRIT 33.5 % (39.0-51.0); HEMO FLAGS DIFF FINAL; LYMPH % 27.1 % (9.0-44.0); LYMPHOCYTE # 1.2 TH/MM3 (1.0-4.8); MEAN CELL VOLUME 100.8 FL (80.0-100.0); MEAN CORPUSCULAR HEMOGLOBIN 33.1 PG (27.0-34.0); MEAN CORPUSCULAR HGB CONC 32.9 % (32.0-36.0); MONO % 14.4 % (0.0-8.0); NEUT % 55.7 % (16.0-70.0); PLATELET COUNT 122 TH/MM3 (150-450); RED BLOOD COUNT 3.33 MIL/MM3 (4.50-5.90); RED CELL DISTRIBUTION WIDTH 16.7 % (11.6-17.2); WHITE BLOOD COUNT 4.3 TH/MM3 (4.0-11.0)
[2017-06-02 06:51] LABS: BICARBONATE 25.4 MEQ/L (21.0-32.0); POTASSIUM 3.6 MEQ/L (3.5-5.1)
[2017-06-02] MEDS ORDERED: LORazepam 2 MG/ML VIAL IV PUSH PRN ×3 (07:45)
[2017-06-02] MEDS ORDERED: FLUMAZENIL 0.5 MG/5 ML VIAL IV PUSH PRN (07:45)
[2017-06-02] MEDS ORDERED: LORazepam 1 MG TAB PO PRN (07:45)
[2017-06-02 08:00] VITALS: BP 163/87; PULSE 67; RESP 18; TEMP 97.2; O2SAT 95
[2017-06-02] MEDS: DOCUSATE SODIUM 50 MG/SENNA 8.6 MG TAB PO SCH ×2 (08:47→20:38)
[2017-06-02] MEDS: SODIUM CHLORIDE 0.9% FLUSH 10 ML FLUSH IV FLUSH SCH ×2 (08:48→20:38)
[2017-06-02 12:00] VITALS: BP 168/87; PULSE 65; RESP 18; TEMP 97.8; O2SAT 95
--- NOTE | 2017-06-02 13:16 | HHI.PR ---
Subjective Remarks Follow-up right elbow abscess. Patient states that the elbow does feel better today. He has increased range of motion. Pain is well controlled. Denies chest pain, dyspnea. Objective Vitals Vital Signs Date Time Temp Pulse Resp B/P Pulse Ox O2 Delivery O2 Flow Rate FiO2 06/02/17 12:00 97.8 65 18 168/87 95 06/02/17 08:00 97.2 67 18 163/87 95 06/02/17 00:00 96.8 73 20 175/97 96 06/01/17 20:00 96.6 74 20 147/84 95 06/01/17 15:30 98.8 69 18 140/91 98 Room Air I/O 06/01/17 06/01/17 06/01/17 06/02/17 06/02/17 06/02/17 07:00 15:00 23:00 07:00 15:00 23:00 Intake Total 360 ml 120 ml Output Total 375 ml Balance 360 ml -255 ml Intake Oral 360 ml 120 ml Output Urine Total 375 ml # Voids 1 1 Result Diagram: 06/02/17 0505 06/02/17 0505 Imaging Last Impressions Chest X-Ray 06/01/17 0930 Signed Impressions: Service Date/Time: May 10:15 - CONCLUSION: Normal examination. Galo Guerrero MD Elbow MRI 06/01/17 0000 Signed Impressions: Service Date/Time: May 12:04 - CONCLUSION: Normal examination. Severe soft tissue edema across the elbow. Galo Guerrero MD Objective Remarks General: No acute distress. Heart: Regular rate and rhythm. No murmur. Lungs: Clear to auscultation bilaterally. No wheezes, rales, or rhonchi. Breathing is nonlabored. Abdomen: Soft, nontender, nondistended. Extremities: No lower extremity edema. Right elbow with open wound, pustular drainage. There is significantly decreased erythema and edema. Range of motion on flexion and extension of the elbow has improved. Psych: Alert and oriented. Procedures None Urinary Catheter: No Vascular Central Line Catheter: No A/P Problem List: (1) Abscess ICD Code: L02.91 Status: Acute (2) Hypertension ICD Code: I10 Status: Chronic (3) Alcohol abuse ICD Code: F10.10 Status: Chronic (4) Hypokalemia ICD Code: E87.6 Status: Resolved Assessment and Plan 1. Right elbow abscess: Continue IV antibiotics. MRI of the elbow shows soft tissue edema. Orthopedic surgery has been consulted. The patient states that he was evaluated by orthopedic surgery, but the report is not yet available. 2. Hypertension: Blood pressure has been elevated overnight. Add lisinopril. 3. Hypokalemia: Resolved. 4. DVT prophylaxis: SCDchris, CASTILLO garcia. 5. Alcohol abuse: Patient was counseled. He states that he had withdrawal symptoms a few days ago, but they have improved. He does not appear to be having withdrawal at this time. Will cover with CIWA protocol. Seizure/alcohol withdrawal precautions. 6. Tobacco abuse: Counseled to quit smoking. Mikey Montes MD Jun 02, 2017 13:16
--- NOTE | 2017-06-02 13:25 | PD.CONS ---
HPI Service Orthopedic Surgeons Consult Requested By Primary Care Physician No Primary Care Physician Admission Diagnosis elbow abscess Diagnoses: (1) Abscess (2) Hypertension (3) Alcohol abuse Chief Complaint: Right elbow abscess History of Present Illness I saw the patient last night. He is a 56-year-old male who sustained a fall approximately 1.5 weeks ago while ambulating with his walker. He thought he had bruised his elbow, however, over the course of time he noticed redness and drainage from his right elbow. He came to [facility] emergency department for further evaluation. He was admitted for right elbow abscess with drainage. Orthopedic consult was obtained. Past Family Social History Past Medical History Hypertension Alcohol abuse Past Surgical History Leg surgery Toe amputation Allergies: Coded Allergies: Bee Sting (Verified Allergy, Intermediate, SWELLS UP, 04/13/17) Active Ordered Medications Current Medications Medications (Trade) Dose Ordered Sig/Josemanuel Route Start Time Stop Time Status Last Admin (NS Flush) 2 ml UNSCH PRN IV FLUSH 06/01/17 12:00 (NS Flush) 2 ml BID IV FLUSH 06/01/17 21:00 06/02/17 08:48 (Tylenol) 650 mg Q4H PRN PO 06/01/17 14:00 (Zofran Inj) 4 mg Q6H PRN IVP 06/01/17 12:00 (Tylenol) 650 mg Q6H PRN PO 06/01/17 14:00 (Cameron 5-325 Mg) 1 tab Q4H PRN PO 06/01/17 14:00 (Cameron 7.5-325 Mg) 1 tab Q4H PRN PO 06/01/17 14:00 06/02/17 05:52 (Narcan Inj) 0.4 mg UNSCH PRN IV 06/01/17 12:00 (Melodie-Colace) 1 tab BID PO 06/01/17 21:00 06/02/17 08:47 (Milk Of Magnesia Liq) 30 ml Q12H PRN PO 06/01/17 12:00 (Senokot) 17.2 mg Q12H PRN PO 06/01/17 12:00 (Dulcolax Supp) 10 mg DAILY PRN RECTAL 06/01/17 12:00 Lactulose 30 ml 30 ml DAILY PRN PO 06/01/17 14:00 Pharmacy Profile Note 0 ml @ 0 mls/hr UNSCH OTHER 06/01/17 12:00 Piperacillin Sod/ Tazobactam Sod 50 ml @ 100 mls/hr Q6H IV 06/01/17 16:00 06/02/17 08:47 (Vancomycin Inj/ NS 250 ml Inj) 262.5 ml @ 262.5 mls/ hr Q18H IV 06/02/17 00:00 06/02/17 00:23 Miscellaneous Information SPECIFIC LAB TO BE ... ONCE ONCE .XX 06/03/17 11:45 06/03/17 11:46 (Romazicon Inj) 0.2 mg Q1M PRN IV PUSH 06/02/17 07:45 (Ativan) 1 mg Q4H PRN PO 06/02/17 07:45 (Ativan Inj) 1 mg Q4H PRN IV PUSH 06/02/17 07:45 (Ativan) 2 mg Q2H PRN PO 06/02/17 07:45 (Ativan Inj) 2 mg Q2H PRN IV PUSH 06/02/17 07:45 (Ativan Inj) 2 mg Q1H PRN IV PUSH 06/02/17 07:45 (Ativan Inj) 2 mg Q15M PRN IV PUSH 06/02/17 07:45 (Folate) 1 mg DAILY PO 06/02/17 13:00 UNV (Vitamin B1) 100 mg DAILY PO 06/02/17 13:00 UNV (Theragran) 1 tab DAILY PO 06/02/17 13:00 UNV Reported Meds & Active Scripts Active Augmentin (Amoxicillin-Clavulanate) 875-125 mg Tab 875 Mg PO BID 14 Days not for use in CrCl <30 ml/min. Levaquin (Levofloxacin) 750 Mg Tab 750 Mg PO DAILY 42 Days Family History His mother had cancer. Social History He reports heavy alcohol use. Last drink was 3 days ago. He smokes a pack per day. Denies illicit drug use. Physical Exam Vital Signs Vital Signs Date Time Temp Pulse Resp B/P Pulse Ox O2 Delivery O2 Flow Rate FiO2 06/02/17 12:00 97.8 65 18 168/87 95 06/02/17 08:00 97.2 67 18 163/87 95 06/02/17 00:00 96.8 73 20 175/97 96 06/01/17 20:00 96.6 74 20 147/84 95 06/01/17 15:30 98.8 69 18 140/91 98 Room Air Physical Exam Right elbow significant erythema from mid bicep region down to mid forearm small open wound with yellow/green mucous purulent drainage discomfort with extension and flexion of elbow distally motor, neuro and sensory intact Laboratory Laboratory Tests Test 06/01/17 06/02/17 15:00 05:05 Urine Color LIGHT-YELLOW Urine Turbidity CLEAR Urine pH 6.0 Urine Specific Coats 1.013 Urine Protein NEG Urine Glucose (UA) NEG Urine Ketones NEG Urine Occult Blood NEG Urine Nitrite NEG Urine Bilirubin NEG Urine Urobilinogen LESS THAN 2.0 Urine Leukocyte Esterase NEG Urine RBC 1 Urine WBC LESS THAN 1 Urine Squamous Epithelial <1 Cells Microscopic Urinalysis Comment CATH-CULT NOT IND White Blood Count 4.3 Red Blood Count 3.33 Hemoglobin 11.0 Hematocrit 33.5 Mean Corpuscular Volume 100.8 Mean Corpuscular Hemoglobin 33.1 Mean Corpuscular Hemoglobin 32.9 Concent Red Cell Distribution Width 16.7 Platelet Count 122 Mean Platelet Volume 9.3 Neutrophils (%) (Auto) 55.7 Lymphocytes (%) (Auto) 27.1 Monocytes (%) (Auto) 14.4 Eosinophils (%) (Auto) 2.1 Basophils (%) (Auto) 0.7 Neutrophils # (Auto) 2.4 Lymphocytes # (Auto) 1.2 Monocytes # (Auto) 0.6 Eosinophils # (Auto) 0.1 Basophils # (Auto) 0.0 CBC Comment DIFF FINAL Differential Comment Sodium Level 141 Potassium Level 3.6 Chloride Level 108 Carbon Dioxide Level 25.4 Anion Gap 8 Blood Urea Nitrogen 11 Creatinine 0.70 Estimat Glomerular Filtration 116 Rate Random Glucose 85 Calcium Level 8.4 Date/Time Procedure Status Source Growth 06/01/17 11:00 Gram Stain - Final Resulted Wound Elbow 06/01/17 11:00 Wound Culture - Preliminary Resulted Group A Beta Strep 06/01/17 11:00 Acid Fast Stain Received Wound Elbow Pending 06/01/17 11:00 Mycobacterial Culture Received Wound Elbow Pending 06/01/17 09:50 Aerobic Blood Culture - Preliminary Resulted Blood Peripheral NO GROWTH IN 1 DAY 06/01/17 09:50 Anaerobic Blood Culture - Preliminary Resulted Blood Peripheral NO GROWTH IN 1 DAY Result Diagram: 06/02/17 0505 06/02/17 0505 Assessment & Plan Problem List: (1) Abscess of bursa, right elbow Assessment and Plan Patient's condition was discussed, his options of treatment were discussed. We discussed in detail the option of conservative care versus surgical intervention. Patient is afebrile with a normal WBC. He denies any fever, chills or sweats. Advised at this time with conservative care. Continue with daily dressing changes. Continue with IV abx therapy. If patient does not respond well with IV abx therapy and his symptoms worsen, then surgical intervention would be considered. Will continue to follow. Patient's case discussed with Dr. Ochoa. Derrek Long Jun 02, 2017 13:25
--- NOTE | 2017-06-02 13:36 | PD.ORT.PN ---
Subjective Subjective Remarks Patient comfortable. Pain controlled. Denies any fever, chills or sweats. Objective Vitals Vital Signs Date Time Temp Pulse Resp B/P Pulse Ox O2 Delivery O2 Flow Rate FiO2 06/02/17 12:00 97.8 65 18 168/87 95 06/02/17 08:00 97.2 67 18 163/87 95 06/02/17 00:00 96.8 73 20 175/97 96 06/01/17 20:00 96.6 74 20 147/84 95 06/01/17 15:30 98.8 69 18 140/91 98 Room Air I/O 06/01/17 06/01/17 06/01/17 06/02/17 06/02/17 06/02/17 07:00 15:00 23:00 07:00 15:00 23:00 Intake Total 360 ml 120 ml Output Total 375 ml Balance 360 ml -255 ml Intake Oral 360 ml 120 ml Output Urine Total 375 ml # Voids 1 1 Result Diagram: 06/02/17 0505 06/02/17 0505 Objective Remarks Right elbow erythema and swelling improving continuous drainage from open wound distally motor, neuro and sensory intact Assessment & Plan Problem List: (1) Abscess of bursa, right elbow Assessment and Plan Reviewed wound culture result - group A beta strep Patient remains afebrile with a normal WBC. Continue with conservative care. Daily dressing changes. Continue with IV abx therapy. Monitor Derrek Long Jun 02, 2017 13:36
[2017-06-02 16:00] VITALS: BP 164/95; PULSE 61; RESP 19; TEMP 96.8; O2SAT 97
[2017-06-02] MEDS: FOLIC ACID 1 MG TAB PO SCH (16:31)
[2017-06-02] MEDS: THIAMINE HCL 100 MG TAB PO SCH (16:31)
[2017-06-02] MEDS: MULTIVITAMIN TAB PO SCH (16:31)
[2017-06-02 20:00] VITALS: BP 183/86; PULSE 123; RESP 18; TEMP 97.9; O2SAT 95
[2017-06-03] VITALS (7 sets, daily range): BP systolic 158–188; BP diastolic 82–100; PULSE 54–129; RESP 17–20; TEMP 96.5–98.9; O2SAT 93–98
[2017-06-03] MEDS: PIPERACIL-TAZO 3.375 GM PREMIX 50 ML IV SCH ×4 (04:07→20:21)
[2017-06-03] MEDS: ACETAMINOPHEN/HYDROcodone 325 MG/7.5 MG TAB PO PRN ×2 (04:11→09:12)
[2017-06-03 05:59] LABS: AUTOMATED NEUTROPHIL # 3.3 TH/MM3 (1.8-7.7); BASOPHIL % 0.5 % (0.0-2.0); EOSINOPHIL # 0.1 TH/MM3 (0-0.4); EOSINOPHIL % 2.4 % (0.0-4.0); HEMATOCRIT 34.7 % (39.0-51.0); HEMO FLAGS DIFF FINAL; LYMPH % 23.8 % (9.0-44.0); LYMPHOCYTE # 1.3 TH/MM3 (1.0-4.8); MEAN CELL VOLUME 101.1 FL (80.0-100.0); MEAN CORPUSCULAR HEMOGLOBIN 33.5 PG (27.0-34.0); MEAN CORPUSCULAR HGB CONC 33.1 % (32.0-36.0); MONO % 14.8 % (0.0-8.0); NEUT % 58.5 % (16.0-70.0); PLATELET COUNT 147 TH/MM3 (150-450); RED BLOOD COUNT 3.43 MIL/MM3 (4.50-5.90); RED CELL DISTRIBUTION WIDTH 16.2 % (11.6-17.2); WHITE BLOOD COUNT 5.7 TH/MM3 (4.0-11.0)
[2017-06-03 06:06] LABS: BICARBONATE 24.5 MEQ/L (21.0-32.0); POTASSIUM 3.2 MEQ/L (3.5-5.1)
[2017-06-03] MEDS: THIAMINE HCL 100 MG TAB PO SCH (09:12)
[2017-06-03] MEDS: DOCUSATE SODIUM 50 MG/SENNA 8.6 MG TAB PO SCH ×2 (09:12→20:21)
[2017-06-03] MEDS: MULTIVITAMIN TAB PO SCH (09:12)
[2017-06-03] MEDS: FOLIC ACID 1 MG TAB PO SCH (09:12)
[2017-06-03] MEDS: SODIUM CHLORIDE 0.9% FLUSH 10 ML FLUSH IV FLUSH SCH ×2 (09:13→20:22)
[2017-06-03] MEDS ORDERED: PHARMACY ORDERED LAB ONE (11:45)
[2017-06-03] MEDS: LORazepam 2 MG TAB PO PRN ×2 (12:22→15:18)
[2017-06-03] MEDS: VANCOMYCIN INJ 1,250 MG in SODIUM CHLOR 0.9% 250 ML INJ 250 ML IV SCH ×2 (12:25→23:58)
--- NOTE | 2017-06-03 15:16 | HHI.PR ---
Subjective Remarks 56 years sold right handed- + pain but better range of motion slightly tremulous Objective Vitals Vital Signs Date Time Temp Pulse Resp B/P Pulse Ox O2 Delivery O2 Flow Rate FiO2 06/03/17 12:00 96.5 60 17 171/97 96 06/03/17 08:35 167/90 06/03/17 08:00 97.5 71 19 176/100 95 06/03/17 05:11 20 06/03/17 00:30 97.2 108 18 160/82 96 06/03/17 00:00 98.3 129 20 188/99 93 06/02/17 20:00 97.9 123 18 183/86 95 06/02/17 16:00 96.8 61 19 164/95 97 I/O 06/02/17 06/02/17 06/02/17 06/03/17 06/03/17 06/03/17 07:00 15:00 23:00 07:00 15:00 23:00 Intake Total 460 ml 390 ml 645 ml Output Total 1175 ml 575 ml 925 ml 825 ml Balance -715 ml -575 ml -535 ml -180 ml Intake Oral 460 ml 240 ml 645 ml IV Total 150 ml Output Urine Total 1175 ml 575 ml 925 ml 825 ml # Bowel Movements 1 0 1 Result Diagram: 06/03/17 0500 06/03/17 0500 Imaging Last Impressions Chest X-Ray 06/01/17 0930 Signed Impressions: Service Date/Time: May 10:15 - CONCLUSION: Normal examination. Galo Guerrero MD Elbow MRI 06/01/17 0000 Signed Impressions: Service Date/Time: May 12:04 - CONCLUSION: Normal examination. Severe soft tissue edema across the elbow. Galo Guerrero MD Objective Remarks awake and alert, tremulous anicteric lungs clear regular rhythm abvdomen soft, nontender Right UE- right elbow with open wound - gauze dressing with mpuruklence, mild swelling of the forearm, good popliteal pulses LE no edema Procedures None A/P Problem List: (1) Abscess ICD Code: L02.91 Status: Acute (2) Hypertension ICD Code: I10 Status: Chronic (3) Alcohol abuse ICD Code: F10.10 Status: Chronic (4) Hypokalemia ICD Code: E87.6 Status: Resolved Assessment and Plan . Right elbow abscess- MRSA : Continue IV antibiotics. MRI of the elbow shows soft tissue edema. medical management- dressing change and antibiotics 2. Hypertension: Blood pressure has been elevated overnight. Added Lisinopril. continue and adjust. prn clonidine 3. Hypokalemia: replace and recheck am 4. DVT prophylaxis: SCDs, CASTILLO garcia. 5. Alcohol abuse: Patient was counseled. He states that he had withdrawal symptoms a few days ago, but they have improved. He does not appear to be having withdrawal at this time. [facility] protocol. Seizure/alcohol withdrawal precautions. 6. Tobacco abuse: Counseled to quit smoking. patient up and ambulating Steven Ann MD Jun 03, 2017 15:16
[2017-06-03] MEDS ORDERED: POTASSIUM CHLORIDE 10 MEQ CONTROLLED RELEASE TAB PO ONE (15:30)
[2017-06-03] MEDS: cloNIDine HCL 0.1 MG TAB PO PRN (16:31)
[2017-06-03] MEDS: chlordiazePOXIDE 25 MG CAP PO SCH (16:32)
[2017-06-03] MEDS: LORazepam 2 MG/ML VIAL IV PUSH PRN (23:58)
[2017-06-04] VITALS: BP 149/91; PULSE 71; RESP 18; TEMP 98.3; O2SAT 96
[2017-06-04 04:00] VITALS: BP 151/101; PULSE 70; RESP 18; TEMP 98.6; O2SAT 98
[2017-06-04] MEDS: LORazepam 2 MG/ML VIAL IV PUSH PRN (05:23)
[2017-06-04] MEDS: PIPERACIL-TAZO 3.375 GM PREMIX 50 ML IV SCH (05:23)
[2017-06-04] MEDS: ACETAMINOPHEN/HYDROcodone 325 MG/7.5 MG TAB PO PRN ×2 (05:31→17:10)
[2017-06-04 08:00] VITALS: BP 171/100; PULSE 70; RESP 16; TEMP 97.6; O2SAT 97
[2017-06-04] MEDS: THIAMINE HCL 100 MG TAB PO SCH (08:14)
[2017-06-04] MEDS: DOCUSATE SODIUM 50 MG/SENNA 8.6 MG TAB PO SCH ×2 (08:14→21:00)
[2017-06-04] MEDS: LORazepam 2 MG TAB PO PRN (08:14)
[2017-06-04] MEDS: chlordiazePOXIDE 25 MG CAP PO SCH ×3 (08:14→18:29)
[2017-06-04] MEDS: FOLIC ACID 1 MG TAB PO SCH (08:14)
[2017-06-04] MEDS: MULTIVITAMIN TAB PO SCH (08:14)
[2017-06-04] MEDS: cloNIDine HCL 0.1 MG TAB PO PRN ×2 (08:18→17:06)
[2017-06-04] MEDS: SODIUM CHLORIDE 0.9% FLUSH 10 ML FLUSH IV FLUSH SCH ×2 (09:00→21:13)
--- NOTE | 2017-06-04 10:58 | HHI.PR ---
Subjective Remarks no fever or chills still with pain and swelling of the right elbow/upper forearm area tremulous when stood up Objective Vitals Vital Signs Date Time Temp Pulse Resp B/P Pulse Ox O2 Delivery O2 Flow Rate FiO2 06/04/17 08:00 97.6 70 16 171/100 97 06/04/17 04:00 98.6 70 18 151/101 98 06/04/17 00:00 98.3 71 18 149/91 96 06/03/17 20:00 98.9 59 18 158/82 98 06/03/17 16:00 97.8 54 17 181/92 98 06/03/17 12:00 96.5 60 17 171/97 96 I/O 06/03/17 06/03/17 06/03/17 06/04/17 06/04/17 06/04/17 06:59 14:59 22:59 06:59 14:59 22:59 Intake Total 390 ml 645 ml Output Total 925 ml 825 ml 575 ml 400 ml Balance -535 ml -180 ml -575 ml -400 ml Intake Oral 240 ml 645 ml IV Total 150 ml Output Urine Total 925 ml 825 ml 575 ml 400 ml # Voids 1 1 # Bowel Movements 0 1 0 0 Result Diagram: 06/03/17 0500 06/03/17 0500 Imaging Last Impressions Chest X-Ray 06/01/17 0930 Signed Impressions: Service Date/Time: May 10:15 - CONCLUSION: Normal examination. Galo Guerrero MD Elbow MRI 06/01/17 0000 Signed Impressions: Service Date/Time: May 12:04 - CONCLUSION: Normal examination. Severe soft tissue edema across the elbow. Galo Guerrero MD Objective Remarks awake and alert, tremulous anicteric lungs clear regular rhythm abdomen soft, nontender Right UE- right elbow with superficial open wound - dried blood on dressing, no foul smell, no purulence, ++ radial and brachial pulses, still with mild swelling around elbow area ? starting induration LE no edema Procedures None A/P Problem List: (1) Abscess ICD Code: L02.91 Status: Acute (2) Hypertension ICD Code: I10 Status: Chronic (3) Alcohol abuse ICD Code: F10.10 Status: Chronic (4) Hypokalemia ICD Code: E87.6 Status: Resolved Assessment and Plan . Right elbow abscess- MRSA with surrounding cellulitis : Continue IV Vancomycin MRI of the elbow shows soft tissue edema. medical management- MRSA- on Vancomycin. Wound appears to be drying up but swelling persists - Monitor - if for any fluid collection/ or repeat imaging if no decrease in swelling PT/OT consult give x 1 po NSAIds 2. Hypertension: uncontrolled. on Lisinopril. Add CCB 3. Hypokalemia: replaced. Recheck today 4. DVT prophylaxis: SCDs, CASTILLO garcia. 5. Alcohol abuse: Patient was counseled. s + tremulous- continue on Librium. Increase to 50 mg tid. CIWA protocol. Seizure/alcohol withdrawal precautions. 6. Tobacco abuse: Counseled to quit smoking. encourage increase activity Steven Ann MD Jun 04, 2017 10:58
[2017-06-04] MEDS: NIFEdipine 30 MG SUSTAINED RELEASE TAB PO SCH (11:00)
[2017-06-04] MEDS ORDERED: IBUPROFEN 800 MG TAB PO ONE (11:15)
[2017-06-04] MEDS ORDERED: PHARMACY ORDERED LAB ONE ×2 (11:45→23:45)
[2017-06-04 12:00] VITALS: BP 166/96; PULSE 60; RESP 17; TEMP 96.7; O2SAT 96
[2017-06-04] MEDS: VANCOMYCIN INJ 1,250 MG in SODIUM CHLOR 0.9% 250 ML INJ 250 ML IV SCH (13:23)
[2017-06-04 16:00] VITALS: BP 175/98; PULSE 62; RESP 18; TEMP 97.2; O2SAT 97
[2017-06-04] MEDS ORDERED: D5-NS + KCL 40 MEQ INJ 1,000 ML IV SCH (19:00)
[2017-06-04 20:00] VITALS: BP 151/94; PULSE 56; RESP 16; TEMP 96.8; O2SAT 96
[2017-06-05] VITALS: BP 178/108; PULSE 56; RESP 18; TEMP 97.6; O2SAT 96
[2017-06-05 01:34] LABS: BICARBONATE 26.4 MEQ/L (21.0-32.0); POTASSIUM 3.6 MEQ/L (3.5-5.1)
[2017-06-05 01:35] LABS: VANCOMYCIN TROUGH 12.6 MCG/ML (5.0-10.0)
[2017-06-05] MEDS: ACETAMINOPHEN/HYDROcodone 325 MG/7.5 MG TAB PO PRN ×3 (01:45→21:41)
[2017-06-05] MEDS: cloNIDine HCL 0.1 MG TAB PO PRN (01:45)
[2017-06-05] MEDS: VANCOMYCIN INJ 1,250 MG in SODIUM CHLOR 0.9% 250 ML INJ 250 ML IV SCH (01:49)
--- NOTE | 2017-06-05 07:17 | PD.ORT.PN ---
Subjective Subjective Remarks Patient c/o right elbow pain. Denies any fever, chills or sweats. Objective Vitals Vital Signs Date Time Temp Pulse Resp B/P Pulse Ox O2 Delivery O2 Flow Rate FiO2 06/05/17 00:00 97.6 56 18 178/108 96 06/04/17 20:00 96.8 56 16 151/94 96 06/04/17 16:00 97.2 62 18 175/98 97 06/04/17 12:00 96.7 60 17 166/96 96 06/04/17 08:00 97.6 70 16 171/100 97 I/O 06/04/17 06/04/17 06/04/17 06/05/17 06/05/17 06/05/17 07:00 15:00 23:00 07:00 15:00 23:00 Intake Total 500 ml Output Total 1050 ml 100 ml 400 ml Balance -550 ml -100 ml -400 ml Intake Oral 500 ml Output Urine Total 1050 ml 100 ml 400 ml # Voids 1 1 # Bowel Movements 0 1 0 Result Diagram: 06/03/17 0500 06/05/17 0056 Objective Remarks Right elbow erythema and swelling improving superficial open wound with granulation tissue, dried blood on dressing no foul smell, no purulence noted pain with extension of elbow, unable to straighten elbow completely 2+ radial pulses +sensation Assessment & Plan Problem List: (1) Abscess of bursa, right elbow Assessment and Plan Wound culture results - group A beta strep & S. aureus MRSA Hypertension & seizure precautions - medical involved Patient remains afebrile with a normal WBC. It appears patient is responding to IV abx therapy. Continue with conservative care. Daily dressing changes. Continue with IV abx therapy. Monitor Derrek Long [facility] Jun 05, 2017 07:17
[2017-06-05 07:47] LABS: BICARBONATE 24.3 MEQ/L (21.0-32.0); POTASSIUM 3.7 MEQ/L (3.5-5.1)
[2017-06-05 08:00] VITALS: BP 163/96; PULSE 61; RESP 20; TEMP 96.8; O2SAT 97
[2017-06-05] MEDS: SODIUM CHLORIDE 0.9% FLUSH 10 ML FLUSH IV FLUSH SCH ×2 (09:00→21:42)
[2017-06-05] MEDS: DOCUSATE SODIUM 50 MG/SENNA 8.6 MG TAB PO SCH ×2 (09:00→21:00)
[2017-06-05] MEDS: THIAMINE HCL 100 MG TAB PO SCH (09:51)
[2017-06-05] MEDS: NIFEdipine 30 MG SUSTAINED RELEASE TAB PO SCH (09:51)
[2017-06-05] MEDS: FOLIC ACID 1 MG TAB PO SCH (09:51)
[2017-06-05] MEDS: MULTIVITAMIN TAB PO SCH (09:51)
[2017-06-05] MEDS: chlordiazePOXIDE 25 MG CAP PO SCH ×4 (09:52→23:28)
[2017-06-05 12:00] VITALS: BP 208/106; PULSE 58; RESP 19; TEMP 97.5; O2SAT 99
--- NOTE | 2017-06-05 14:37 | HHI.PR ---
Subjective Remarks swelling and range of motion improving per patient no fever or chills Objective Vitals Vital Signs Date Time Temp Pulse Resp B/P Pulse Ox O2 Delivery O2 Flow Rate FiO2 06/05/17 12:00 97.5 58 19 208/106 99 06/05/17 08:00 96.8 61 20 163/96 97 06/05/17 00:00 97.6 56 18 178/108 96 06/04/17 20:00 96.8 56 16 151/94 96 06/04/17 16:00 97.2 62 18 175/98 97 I/O 06/04/17 06/04/17 06/04/17 06/05/17 06/05/17 06/05/17 07:00 15:00 23:00 07:00 15:00 23:00 Intake Total 500 ml Output Total 1050 ml 100 ml 400 ml Balance -550 ml -100 ml -400 ml Intake Oral 500 ml Output Urine Total 1050 ml 100 ml 400 ml # Voids 1 1 # Bowel Movements 0 1 0 Result Diagram: 06/03/17 0500 06/05/17 0535 Imaging Last Impressions Chest X-Ray 06/01/17 0930 Signed Impressions: Service Date/Time: May 10:15 - CONCLUSION: Normal examination. Galo Guerrero MD Elbow MRI 06/01/17 0000 Signed Impressions: Service Date/Time: May 12:04 - CONCLUSION: Normal examination. Severe soft tissue edema across the elbow. Galo Guerrero MD Objective Remarks awake and alert, tremulous anicteric lungs clear regular rhythm abdomen soft, nontender Right UE- right elbow with superficial open wound - dried blood on dressing, no foul smell, no purulence, ++ radial and brachial pulses, still with decreased swelling around elbow area LE no edema Procedures None A/P Problem List: (1) Abscess ICD Code: L02.91 Status: Acute (2) Hypertension ICD Code: I10 Status: Chronic (3) Alcohol abuse ICD Code: F10.10 Status: Chronic (4) Hypokalemia ICD Code: E87.6 Status: Resolved Assessment and Plan . Right elbow abscess- MRSA with surrounding cellulitis : Continue IV Vancomycin MRI of the elbow shows soft tissue edema. medical management- MRSA- on Vancomycin. Wound appears to be drying up but swelling persists - Monitor - if for any fluid collection/ or repeat imaging if no decrease in swelling PT/OT consult give x 1 po NSAIds 2. Hypertension: uncontrolled. on Lisinopril. Increase procardia 3. Hypokalemia: replaced. Recheck today 4. DVT prophylaxis: SCDs, CASTILLO garcia. 5. mild DTs. Alcohol abuse: Patient was counseled. s + tremulous- continue on Librium. Increased to 50 mg tid. CIWA protocol. Seizure/alcohol withdrawal precautions. 6. Tobacco abuse: Counseled to quit smoking. encourage increase activity Steven Ann MD Jun 05, 2017 14:37
[2017-06-05 16:00] VITALS: BP 134/84; PULSE 71; RESP 19; TEMP 97.8; O2SAT 98
[2017-06-05] MEDS: CLINDAMYCIN 150 MG CAP PO SCH ×2 (18:30→23:28)
[2017-06-05 20:00] VITALS: BP 117/65; PULSE 73; RESP 18; TEMP 96.3; O2SAT 97
[2017-06-06] VITALS: BP 158/86; PULSE 64; RESP 18; TEMP 96; O2SAT 96
[2017-06-06] MEDS: chlordiazePOXIDE 25 MG CAP PO SCH ×4 (05:18→23:16)
[2017-06-06] MEDS: CLINDAMYCIN 150 MG CAP PO SCH ×4 (05:18→23:16)
[2017-06-06] MEDS: ACETAMINOPHEN/HYDROcodone 325 MG/7.5 MG TAB PO PRN ×5 (05:25→23:17)
[2017-06-06 08:00] VITALS: BP 139/79; PULSE 65; RESP 18; TEMP 95.8; O2SAT 95
[2017-06-06] MEDS: THIAMINE HCL 100 MG TAB PO SCH (09:42)
[2017-06-06] MEDS: DOCUSATE SODIUM 50 MG/SENNA 8.6 MG TAB PO SCH ×2 (09:42→20:32)
[2017-06-06] MEDS: MULTIVITAMIN TAB PO SCH (09:42)
[2017-06-06] MEDS: NIFEdipine 60 MG SUSTAINED RELEASE TAB PO SCH (09:42)
[2017-06-06] MEDS: FOLIC ACID 1 MG TAB PO SCH (09:42)
[2017-06-06] MEDS: SODIUM CHLORIDE 0.9% FLUSH 10 ML FLUSH IV FLUSH SCH ×2 (09:43→20:32)
--- NOTE | 2017-06-06 11:10 | HHI.PR ---
Subjective Remarks minimal pain right UE- more ROM no pain complains less tremulous Objective Vitals Vital Signs Date Time Temp Pulse Resp B/P Pulse Ox O2 Delivery O2 Flow Rate FiO2 06/06/17 08:00 95.8 65 18 139/79 95 06/06/17 00:00 96.0 64 18 158/86 96 06/05/17 20:00 96.3 73 18 117/65 97 06/05/17 16:00 97.8 71 19 134/84 98 06/05/17 12:00 97.5 58 19 208/106 99 I/O 06/05/17 06/05/17 06/05/17 06/06/17 06/06/17 06/06/17 06:59 14:59 22:59 06:59 14:59 22:59 Intake Total 1000 ml 421 ml 764 ml Output Total 400 ml 900 ml 500 ml 1200 ml Balance -400 ml 100 ml -79 ml -436 ml Intake Oral 1000 ml 240 ml 240 ml IV Total 181 ml 524 ml Output Urine Total 400 ml 900 ml 500 ml 1200 ml # Bowel Movements 0 0 0 0 Result Diagram: 06/03/17 0500 06/05/17 0535 Imaging Last Impressions Chest X-Ray 06/01/17 0930 Signed Impressions: Service Date/Time: May 10:15 - CONCLUSION: Normal examination. Galo Guerrero MD Elbow MRI 06/01/17 0000 Signed Impressions: Service Date/Time: May 12:04 - CONCLUSION: Normal examination. Severe soft tissue edema across the elbow. Galo Guerrero MD Objective Remarks awake and alert, tremulous anicteric lungs clear regular rhythm abdomen soft, nontender Right UE- right elbow with superficial open wound - dried blood on dressing, no foul smell, no purulence, ++ radial and brachial pulses, swelling around elbow- almost resolved Procedures None A/P Problem List: (1) Abscess ICD Code: L02.91 Status: Acute (2) Hypertension ICD Code: I10 Status: Chronic (3) Alcohol abuse ICD Code: F10.10 Status: Chronic (4) Hypokalemia ICD Code: E87.6 Status: Resolved Assessment and Plan Right elbow abscess- MRSA with surrounding cellulitis : change to po clindamycin Wound appears to be drying up but swelling persists - Monitor - if for any fluid collection/ or repeat imaging if no decrease in swelling PT/OT consult give x 1 po NSAIds Hypertension: better readings. on Lisinopril. Increased procardia Hypokalemia: replaced. Recheck today DVT prophylaxis: SCDs, CASTILLO garcia. mild DTs. Alcohol abuse: Patient was counseled. s - mild tremors- improved- continue on Librium. Increased to 50 mg q 6. gradual taper when counselled- "homeless, I'll probably go back to drinking" CIWA protocol. Seizure/alcohol withdrawal precautions. Tobacco abuse: Counseled to quit smoking. encourage increase activity CM consult- DC planning Steven Ann MD Jun 06, 2017 11:10
[2017-06-06 12:00] VITALS: BP 166/84; PULSE 62; RESP 18; TEMP 96.7; O2SAT 97
[2017-06-06 16:00] VITALS: BP 133/77; PULSE 83; RESP 18; TEMP 97.4; O2SAT 97
[2017-06-06 20:00] VITALS: BP 136/79; PULSE 63; RESP 19; TEMP 96.7; O2SAT 96
[2017-06-07] VITALS: BP 152/88; PULSE 67; RESP 19; TEMP 97.8; O2SAT 96
[2017-06-07] MEDS: chlordiazePOXIDE 25 MG CAP PO SCH ×2 (04:27→12:31)
[2017-06-07] MEDS: CLINDAMYCIN 150 MG CAP PO SCH ×2 (04:27→12:31)
[2017-06-07] MEDS: ACETAMINOPHEN/HYDROcodone 325 MG/7.5 MG TAB PO PRN ×3 (04:27→12:31)
[2017-06-07 08:00] VITALS: BP 125/69; PULSE 71; RESP 18; TEMP 96.8; O2SAT 95
[2017-06-07] MEDS: DOCUSATE SODIUM 50 MG/SENNA 8.6 MG TAB PO SCH (08:42)
[2017-06-07] MEDS: THIAMINE HCL 100 MG TAB PO SCH (08:42)
[2017-06-07] MEDS: MULTIVITAMIN TAB PO SCH (08:42)
[2017-06-07] MEDS: FOLIC ACID 1 MG TAB PO SCH (08:42)
[2017-06-07] MEDS: NIFEdipine 60 MG SUSTAINED RELEASE TAB PO SCH (08:42)
[2017-06-07] MEDS: SODIUM CHLORIDE 0.9% FLUSH 10 ML FLUSH IV FLUSH SCH (08:43)
--- NOTE | 2017-06-07 11:21 | HHI.PR ---
Subjective Remarks no paina complains, no nausea or vomiting po 100% reinforced cessation up and ambulating not tremulous Objective Vitals Vital Signs Date Time Temp Pulse Resp B/P Pulse Ox O2 Delivery O2 Flow Rate FiO2 06/07/17 08:00 96.8 71 18 125/69 95 06/07/17 00:00 97.8 67 19 152/88 96 06/06/17 20:00 96.7 63 19 136/79 96 06/06/17 16:00 97.4 83 18 133/77 97 06/06/17 12:00 96.7 62 18 166/84 97 I/O 06/06/17 06/06/17 06/06/17 06/07/17 06/07/17 06/07/17 06:59 14:59 22:59 06:59 14:59 22:59 Intake Total 764 ml 720 ml 360 ml 360 ml Output Total 1200 ml 1000 ml 600 ml Balance -436 ml 720 ml -640 ml -240 ml Intake Oral 240 ml 720 ml 360 ml 360 ml IV Total 524 ml 0 ml 0 ml 0 ml Output Urine Total 1200 ml 1000 ml 600 ml # Voids 3 # Bowel Movements 0 1 0 0 Result Diagram: 06/03/17 0500 06/07/17 0615 Objective Remarks awake and alert, blunt affect anicteric lungs clear regular rhythm abdomen soft, nontender Right UE- right elbow with superficial open wound - dried blood on dressing, no foul smell, no purulence, ++ radial and brachial pulses, swelling around elbow- resolved Procedures None A/P Problem List: (1) Abscess ICD Code: L02.91 Status: Acute (2) Hypertension ICD Code: I10 Status: Chronic (3) Alcohol abuse ICD Code: F10.10 Status: Chronic (4) Hypokalemia ICD Code: E87.6 Status: Resolved Assessment and Plan Right elbow abscess- MRSA with surrounding cellulitis : continue po clindamycin Hypertension: better readings. on Lisinopril. Increased procardia Hypokalemia: corrected DVT prophylaxis: SCDs, CASTILLO hose. mild DTs. Alcohol abuse: Patient was counseled. s - mild tremors- improved- continue on Librium. gradual taper when counselled- "homeless, I'll probably go back to drinking"- reinforced again today [place] protocol. Seizure/alcohol withdrawal precautions. Tobacco abuse: Counseled to quit smoking. encourage increase activity CM consult- d/w CM- will get antibotics for him Steven Ann MD Jun 07, 2017 11:21
[2017-06-07] MEDS ORDERED: GNP100TA3 PO (11:26)
[2017-06-07] MEDS ORDERED: FOLI1TAB6 PO (11:26)
[2017-06-07] MEDS ORDERED: CLIN150 PO (11:26)
[2017-06-07] MEDS ORDERED: CHLO25CA9 PO (11:26)
[2017-06-07] MEDS ORDERED: NIFE60TA8 PO (11:28)
--- NOTE | 2017-06-07 11:31 | HHI.DS ---
Discharge Summary Admission Date Jun 01, 2017 at 11:54 Discharge Date: Jun 07, 2017 Admitting Diagnosis elbow abscess (1) Abscess ICD Code: L02.91 Diagnosis: Principal (2) Hypertension ICD Code: I10 Diagnosis: Secondary (3) Alcohol abuse ICD Code: F10.10 Diagnosis: Principal (4) Hypokalemia ICD Code: E87.6 Diagnosis: Secondary Procedures None Brief History - From Admission The patient is a 56-year-old male who presented to the emergency department with complaint of infection of the right elbow. He states that started a few days ago. He reports that he was arrested a few nights ago and [place] the night in [place]. He states that he had an alcohol withdrawal seizure at that time and hit his elbow when he fell. He reports no other injuries. He states that the elbow continued to swell and became extremely painful. It became erythematous as well. He denies fever, chills, night sweats. He states that he fell again and landed on his elbow. When he hit it that time, the elbow started draining a large amount of pus. It has continued to drain. It is less painful now, but still painful with flexion and extension of the elbow. CBC/BMP: 06/03/17 0500 06/07/17 0615 Significant Findings Laboratory Tests Test 06/05/17 06/05/17 00:56 05:35 Chloride Level 108 MEQ/L 108 MEQ/L (98-107) (98-107) Estimat Glomerular Filtration 88 ML/MIN (>89) Rate Random Glucose 112 MG/DL (74-106) Vancomycin Level Trough 12.6 MCG/ML (5.0-10.0) Imaging Last Impressions Chest X-Ray 06/01/17 0930 Signed Impressions: Service Date/Time: May 10:15 - CONCLUSION: Normal examination. Galo Guerrero MD Elbow MRI 06/01/17 0000 Signed Impressions: Service Date/Time: May 12:04 - CONCLUSION: Normal examination. Severe soft tissue edema across the elbow. Galo Guerrero MD PE at Discharge awake and alert, blunt affect, no tremors anicteric lungs clear regular rhythm abdomen soft, nontender Right UE- right elbow with superficial open wound - dried blood on dressing, no foul smell, no purulence, ++ radial and brachial pulses, swelling around elbow- resolved no ataxia Pt update on day of discharge awake and alert, no ataxia wound superficial dry, no pus, swelling of elbow resolved, good range of motion Pt Condition on Discharge: Stable Discharge Disposition: Discharge Home Discharge Time: <= 30 minutes Discharge Instructions DIET: Follow Instructions for: As Tolerated, No Restrictions, Heart Healthy Diet Speech Therapy-Diet Recommends: Regular Additional Diet Instructions: alcoholl cessation reinforce Activities you can perform: Weight Bearing as Valeria Follow up Referrals: PCP Follow-up - 06/12/17 with [facility] - [facility] with [facility] [place] [facility] New Medications: Chlordiazepoxide HCl (Chlordiazepoxide HCl) 25 Mg Capsule 25 MG PO Q8HR ETOH Days 3 TAB Clindamycin (Cleocin) 150 Mg Cap 300 MG PO Q6HR Infection Days 7 CAP Folic Acid (Folic Acid) 1 Mg Tablet 1 MG PO DAILY ETOH Days 30 TAB Nifedipine ER 24 HR (Nifedipine ER 24 HR) 60 Mg Tab 60 MG PO DAILY HTN Days 30 TAB Thiamine HCl (Gnp Vitamin B-1) 100 Mg Tab 100 MG PO DAILY etoh Days 30 TAB Discontinued Medications: Amoxicillin-Clavulanate (Augmentin) 875-125 mg Tab 875 MG PO BID not for use in CrCl <30 ml/min. Infection Days 14 Ref 0 TAB Levofloxacin (Levaquin) 750 Mg Tab 750 MG PO DAILY Infection Days 42 Ref 0 TAB Steven Ann MD Jun 07, 2017 11:31
[2017-06-07 12:00] VITALS: BP 130/79; PULSE 61; RESP 18; TEMP 97.2; O2SAT 96
== END 2017-06-07 16:03 | disposition home or self-care (01) | DRG 872 ==
LOC: NEPD 08:58 → NEDA 11:54 → N07B 16:38
PROVIDERS: ADMIT Internal Medicine; ATTEND Internal Medicine
DX: A41.9 Sepsis, unspecified organism (principal); F10.231 Alcohol dependence with withdrawal delirium; L03.113 Cellulitis of right upper limb; L02.413 Cutaneous abscess of right upper limb; I10 Essential (primary) hypertension; J44.9 Chronic obstructive pulmonary disease, unspecified; E87.6 Hypokalemia; F17.210 Nicotine dependence, cigarettes, uncomplicated; R60.9 Edema, unspecified
CPT/HCPCS: 71010; 73223; 76937; 80048; 80053; 80202; 81001; 82565; 83605; 85025; 86403; 87015; 87040; 87070; 87116; 87147; 87186; 87206; 96361; 96365; 96368; A9579; J2060; J2543; J3370; J3480; J7030; J7050